=== PATIENT | male | born 1940 | race Caucasian/White ===

== ENCOUNTER 2019-07-15 03:36 | Inpatient (IN) | payer BC, MEDICAID, MEDICARE ==
--- NOTE | 2019-07-15 03:50 | ER Document Report ---
ED Fall - General Chief Complaint: Hip Pain Stated Complaint: HIP PAIN Time Seen by Provider: 07/15/19 03:44 Primary Care Provider: FELI LUNDBERG FNP-C [Primary Care Provider] - Follow up as needed Notes: Patient is a 79-year-old male that comes emergency department by EMS from [facility] for chief complaint of fall. Patient reportedly fell in his room nearby a nurse who immediately went and checked on him and found him on his side. Reportedly he was complaining of pain in the right hip area. He also had a skin tear to left elbow. Patient is completely disoriented and is unable to answer any questions appropriately on interview. He answers randomly yes and no but he does follow directions. Patient is not reported to be on a blood thinner. Patient is reported to be confused/demented at baseline. - Related data Allergies/Adverse Reactions: No Known Allergies Allergy (Verified 07/15/19 05:36) Past Medical History - General Information source: Patient - Social History Smoking Status: Never Smoker Frequency of alcohol use: None Drug Abuse: None Lives with: Family Family History: Reviewed & Not Pertinent - Past Medical History Cardiac Medical History: Reports: Hx Hypertension Neurological Medical History: Reports: Other - Dementia - Immunizations Immunizations up to date: Yes Hx Diphtheria, Pertussis, Tetanus Vaccination: Yes Review of Systems - Review of Systems Constitutional: No symptoms reported EENT: No symptoms reported Cardiovascular: No symptoms reported Respiratory: No symptoms reported Gastrointestinal: No symptoms reported Genitourinary: No symptoms reported Male Genitourinary: No symptoms reported Musculoskeletal: See HPI Skin: No symptoms reported Hematologic/Lymphatic: No symptoms reported Neurological/Psychological: No symptoms reported Physical Exam - Vital signs Vitals: Temp BP 97.7 F 153/66 H 07/15/19 03:50 07/15/19 03:50 - Notes Notes: GENERAL: Alert, interacts well. No acute distress. HEAD: Normocephalic, atraumatic. EYES: Pupils equal, round, and reactive to light. Extraocular movements intact. ENT: Oral mucosa moist, tongue midline. Oropharynx unremarkable. Airway patent. NECK: Full range of motion. Supple. Trachea midline. LUNGS: Clear to auscultation bilaterally, no wheezes, rales, or rhonchi. No respiratory distress. HEART: Regular rate and rhythm. No murmur ABDOMEN: Soft, non-tender. Non-distended. GENITOURINARY: No signs of trauma. EXTREMITIES: Right leg is externally rotated and very tender over the general thigh and hip area. Distal pulses intact. Extremities otherwise unremarkable except for a small skin abrasion over the left elbow. BACK: no cervical, thoracic, lumbar midline tenderness. Normal distal neurovascular exam. NEUROLOGICAL: Alert and cooperative but not oriented. Normal speech. Cranial nerves II through XII grossly intact. PSYCH: Patient strangely persistently grinning SKIN: Warm, dry, normal turgor. No rashes or lesions noted. Course - Re-evaluation Re-evalutation: I attempted to call patient's with the provided number but she did not answer with two attempts. I called and spoke with Yakelin, nursing staff available at the [facility] She states that patient's is usually difficult to get up with and actually lives out of state although she has the power disability attorney. She states that patient is normally very ambulatory, he spends his days room and around the halls. As result he is a candidate for surgery. 07/15/19 05:[address] Berkowitz, orthopedics on-call, he states that he will be avail able to perform the repair on the patient this weekend. Because of patient's advanced age I will discuss with hospitalist for admission. 07/15/19 06:25 I spoke with patient's , power of disability attorney, Angela. She states she is in [place] and her daughter just had a hysterectomy, she requests that we contact her and keep her updated but she is uncertain if she will be able to travel back because of this. She is in full agreement with patient having surgery on the right hip because he is normally very ambulatory. Patient is listed as a full code. 07/15/19 07:33 Spoke with Chevy Hurd, APC, patient accepted to the medical floor under medicine with orthopedic consult. - Vital Signs Vital signs: Temp Pulse Resp BP Pulse Ox 97.5 F 73 138/74 H 99 07/15/19 06:45 07/15/19 06:45 07/15/19 06:45 07/15/19 06:45 - Laboratory Result Diagrams: 07/15/19 06:15 07/15/19 06:15 Laboratory results interpreted by me: 07/15/19 07/15/19 07/15/19 06:15 06:15 06:30 RBC 3.07 L Hgb 11.0 L Hct 31.8 L MCV 103 H MCH 35.8 H RDW 15.6 H Plt Count 65 L Lymph % (Auto) 12.0 L Glucose 125 H Alkaline Phosphatase 160 H Albumin 3.3 L Urine Blood SMALL H Urine Nitrite POSITIVE H Urine Urobilinogen 2.0 H Ur Leukocyte Esterase SMALL H Discharge - Discharge Clinical Impression: Displaced subtrochanteric fracture of right femur, initial encounter for closed fracture Fall Qualifiers: Encounter type: initial encounter Qualified Code(s): W19.XXXA - Unspecified fall, initial encounter Condition: Stable Disposition: ADMITTED INPATIENT Admitting Provider: Chevy Hurd Unit Admitted: Medical Floor Referrals: FELI LUNDBERG, PEAT SHREDDER TENDER-C [Primary Care Provider] - Follow up as needed
--- NOTE | 2019-07-15 05:30 | RADIOLOGY REPORT (SQ) ---
Left elbow four view on 07/15/2019 at 4:09 AM CLINICAL INDICATION: Left elbow pain after fall COMPARISON: None FINDINGS: Chronic spur formation is noted along the lateral aspect of the radial head. There is mild diffuse osteopenia. There are no acute fractures. Visualized joints are well aligned. No joint effusion to suggest an occult fracture is noted. IMPRESSION: No acute abnormality.
--- NOTE | 2019-07-15 05:32 | RADIOLOGY REPORT (SQ) ---
EXAM DESCRIPTION: XR HIP 2 OR MORE VIEWS COMPLETED DATE/TME: 07/15/2019 03:49 CLINICAL HISTORY: 79 years, Male, fall, pain COMPARISON: None. NUMBER OF VIEWS: Three TECHNIQUE: Three views of the right hip LIMITATIONS: None. FINDINGS: There is a displaced and comminuted intertrochanteric fracture of the right femur. Bones are demineralized. No other fracture is identified. IMPRESSION: Displaced and comminuted intertrochanteric fracture of the right femur copyright 2010 [employer]- All Rights Reserved
[2019-07-15] MEDS ORDERED: MORPHINE SULFATE 10 MG/ML INJ IV ONE (06:22)
[2019-07-15 06:29] LABS: ABSOLUTE EOSINOPHILS # (AUTO) 0.2 10^3/uL (0.0-0.6); ABSOLUTE LYMPHOCYTES (AUTO) 0.7 10^3/uL (0.5-4.7); ABSOLUTE MONOCYTES (AUTO) 0.5 10^3/uL (0.1-1.4); ABSOLUTE NEUT (AUTO) 4.6 10^3/uL (1.7-8.2); BASOPHILS % (AUTO) 0.3 % (0-2); EOSINOPHILS % (AUTO) 3.1 % (0-6); HEMATOCRIT 31.8 % (37.9-51.0); MEAN CORPUSCULAR HEMOGLOBIN 35.8 pg (27.0-33.4); MEAN CORPUSCULAR HGB CONC 34.6 g/dL (32.0-36.0); MEAN CORPUSCULAR VOLUME 103 fl (80-97); MONOCYTES % (AUTO) 8.9 % (3-13); RED BLOOD COUNT 3.07 10^6/uL (4.35-5.55); RED CELL DISTRIBUTION WIDTH 15.6 % (11.5-14.0); SEGMENTED NEUTROPHILS % (AUTO) 75.7 % (42-78); TOTAL CELLS COUNTED % (AUTO) 100 %
[2019-07-15 06:35] LABS: INTERNATIONAL RATION (INR) 1.15; PROTHROMBIN TIME 14.8 SEC (11.4-15.4)
[2019-07-15 06:36] LABS: PARTIAL THROMBOPLASTIN TIME 27.5 SEC (23.5-35.8)
[2019-07-15 06:43] LABS: ALBUMIN 3.3 g/dL (3.5-5.0); ALKALINE PHOSPHATASE 160 U/L (38-126); ANION GAP 7 (5-19); ASPARTATE AMINO TRANSFERASE 41 U/L (17-59); BILIRUBIN,DIRECT 0.3 mg/dL (0.0-0.4); BLOOD UREA NITROGEN 18 mg/dL (7-20); CALCIUM 8.7 mg/dL (8.4-10.2); CARBON DIOXIDE 28 mmol/L (22-30); CHLORIDE 106 mmol/L (98-107); GLUCOSE 125 mg/dL (75-110); POTASSIUM 4.9 mmol/L (3.6-5.0); TOTAL PROTEIN 6.9 g/dL (6.3-8.2)
[2019-07-15 06:57] LABS: PLATELET COUNT 65 10^3/uL (150-450)
[2019-07-15 07:17] LABS: APPEARANCE,URINE SLIGHTLY-CLOUDY; BILIRUBIN,URINE NEGATIVE (NEGATIVE); COLOR,URINE YELLOW; GLUCOSE, URINE NEGATIVE (NEGATIVE); KETONES,URINE NEGATIVE (NEGATIVE); LEUKOCYTE ESTERASE,URINE SMALL (NEGATIVE); NITRITE,URINE POSITIVE (NEGATIVE); PROTEIN,URINE NEGATIVE (NEGATIVE)
--- NOTE | 2019-07-15 07:18 | RADIOLOGY REPORT (SQ) ---
Chest single view on 07/15/2019 at 6:20 AM CLINICAL INDICATION: Preop right femur fracture fixation COMPARISON: None FINDINGS: There is mild scoliosis of the spine. The lungs are clear. Heart is within normal limits for size. Pulmonary vascularity is within normal limits. IMPRESSION: No acute disease.
--- NOTE | 2019-07-15 07:28 | PDOC CONSULTATION ---
Consultation Consult Date: 07/15/19 Provider Consulted: DORA PENA Consult reason:: Right hip subtrochanteric fracture History of Present Illness Admission Date/PCP: HIRAL BLACK History of Present Illness: FAWAD GARCIA is a 79 year old male brought into the emergency department from a long-term care facility. He was apparently found on the floor by the nursing staff at the long-term care facility with obvious deformity of his right leg. Evaluation in the emergency department demonstrated a comminuted subtrochanteric fracture of the right hip. Past Medical History Cardiac Medical History: Reports: None Denies: Atrial Fibrillation, Congestive Heart Failure, Coronary Artery Disease, DVT, Myocardial Infarction, Hyperlipidema, Hypertension, Peripheral Vascular Disease, Pulmonary Embolism, Heart Murmur, Other Pulmonary Medical History: Reports: None Denies: Asthma, Bronchitis, Chronic Obstructive Pulmonary Disease (COPD), Intubation, Pneumonia, Respiratory Failure, Sleep Apnea, Tuberculosis, Other EENT Medical History: Reports: None Neurological Medical History: Reports: Other - Severe dementia Endocrine Medical History: Denies: None, Diabetes Mellitus Type 1, Diabetes Mellitus Type 2, Gestational Diabetes, Hyperthyroidism, Hypothyroidism, Obesity, Other Renal/ Medical History: Denies: None, Chronic Kidney Disease, End Stage Renal Disease, Nephrolithiasis, Other Malignancy Medical History: Denies: None, Bone Cancer, Brain Cancer, Breast Cancer, Cervical Cancer, Colorectal Cancer, Leukemia, Liver Cancer, Lung Cancer, Lymphoma, Ovarian Cancer, Pancreatic Cancer, Renal (Kidney) Cancer, Skin Cancer, Other GI Medical History: Denies: None, Cirrhosis, Crohn's Disease, Diverticulitis, Gastroesophageal Reflux Disease, Hepatitis, Hiatal Hernia, Peptic Ulcer Disease, Ulcerative Colitis, Other Musculoskeltal Medical History: Reports: None Skin Medical History: Reports: None Psychiatric Medical History: Reports: Dementia, Depression Traumatic Medical History: Denies: None, Gunshot Wound, Pneumothorax, Stab Wound, Traumatic Brain Injury, Other Hematology: Denies: None, Anemia, Hemophilia, Sickle Cell Disease, Bleeding Tendencies, Heparin Induced Thrombocytopenia, Neutropenia, Other Infectious Medical History: Denies: None, Clostridium Difficile, Hepatitis B, Hepatitis C, HIV, Methicillin-Resistant Staph Aureus, Vancomycin-Resistant Enterococci, Other Past Surgical History Past Surgical History: Reports: None Social History Information Source: Transfer Record Lives with: Long-Term Smoking Status: Unknown if Ever Smoked Family History Parental Family History Reviewed: No Children Family History Reviewed: No Sibling(s) Family History Reviewed.: No Medication/Allergy Allergies/Adverse Reactions: No Known Allergies Allergy (Verified 07/15/19 05:36) Physical Exam Vital Signs: Temp Pulse Resp BP Pulse Ox 97.5 F 73 138/74 H 99 07/15/19 06:45 07/15/19 06:45 07/15/19 06:45 07/15/19 06:45 Intake & Output 07/14/19 07/15/19 07/16/19 06:59 06:59 06:59 Weight 74.843 kg General appearance: PRESENT: no acute distress, well-developed, well-nourished Head exam: PRESENT: atraumatic, normocephalic Eye exam: PRESENT: conjunctiva pink, EOMI, PERRLA. ABSENT: scleral icterus Ear exam: PRESENT: normal external ear exam Mouth exam: PRESENT: moist, tongue midline Neck exam: PRESENT: full ROM Respiratory exam: PRESENT: clear to auscultation katelin. ABSENT: rales, rhonchi, wheezes Cardiovascular exam: PRESENT: RRR. ABSENT: diastolic murmur, rubs, systolic murmur Pulses: PRESENT: normal dorsalis pedis pul GI/Abdominal exam: PRESENT: normal bowel sounds, soft. ABSENT: distended, guarding, mass, organolmegaly, rebound, tenderness Rectal exam: PRESENT: deferred Extremities exam: PRESENT: other - The right leg is shortened and externally rotated. The patient is able to dorsiflex and plantarflex the foot. 2+ posterior tibial dorsalis pedis pulses. Results Laboratory Results: 07/15/19 06:15 07/15/19 06:15 07/15/19 07/15/19 07/15/19 06:15 06:15 06:30 WBC 6.0 RBC 3.07 L Hgb 11.0 L Hct 31.8 L MCV 103 H MCH 35.8 H MCHC 34.6 RDW 15.6 H Plt Count 65 L Seg Neutrophils % 75.7 Sodium 140.5 Potassium 4.9 Chloride 106 Carbon Dioxide 28 Anion Gap 7 BUN 18 Creatinine 0.75 Est GFR ( Amer) > 60 Glucose 125 H Calcium 8.7 Total Bilirubin 1.0 AST 41 Alkaline Phosphatase 160 H Total Protein 6.9 Albumin 3.3 L Urine Color YELLOW Urine Appearance SLIGHTLY-CLOUDY Urine pH 7.0 Ur Specific [place] 1.010 Urine Protein NEGATIVE Urine Glucose (UA) NEGATIVE Urine Ketones NEGATIVE Urine Blood SMALL H Urine Nitrite POSITIVE H Ur Leukocyte Esterase SMALL H Urine WBC (Auto) 9 Urine RBC (Auto) 1 Impressions: Elbow X-Ray 07/15/19 03:49 IMPRESSION: No acute abnormality. Hip/Pelvis X-Ray 07/15/19 03:49 IMPRESSION: Displaced and comminuted intertrochanteric fracture of the right femur copyright 2011 [employer]- All Rights Reserved Chest X-Ray 07/15/19 05:40 IMPRESSION: No acute disease. Assessment & Plan - Time Time Spent: 30 to 50 Minutes - Plan Summary Plan Summary: Per report of the facility and the patient's the patient does ambulates prior to his recent injury. Patient will be admitted to the medical service for evaluation. Following medical optimization I would recommend intramedullary nail fixation of the subtrochanteric fracture of the right proximal femur. Surgical consent will be obtained from his Angela who is the healthcare power of clerk carrier. Risks, benefits, and alternatives will be discussed including the risk of with anesthesia, the risk of nonunion and malunion, and the possible need for additional surgical procedures.
[2019-07-15] MEDS ORDERED: ONDANSETRON HCL INJ/PF 4 MG/2 ML SDV IV PRN (07:48)
[2019-07-15] MEDS ORDERED: DEXTROSE 50%-WATER 25 GM/50 ML DISP.SYRIN IV PRN ×2 (07:57)
[2019-07-15] MEDS ORDERED: GLUCAGON,HUMAN RECOMB 1 MG INJ IM PRN (07:57)
[2019-07-15] MEDS ORDERED: DEXTROSE 40% GEL 15 GM TUBE PO PRN ×2 (07:57)
[2019-07-15] MEDS ORDERED: HYDRALAZINE HCL INJ/PF 20 MG/1 ML SDV IV PRN (07:58)
--- NOTE | 2019-07-15 08:04 | PDOC H&P ---
History of Present Illness Admission Date/PCP: 07/15/19 07:46 FELI LUNDBERG, EXECUTIVE CANDIDATE DEVELOPER-C Patient complains of: Right hip pain History of Present Illness: FAWAD GARCIA is a 79 year old male with advanced dementia who presents the ER after a fall. Patient with Glo fell in his room at a local nursing facility and a nurse apparently found him on his side. Patient was complaining of pain in the right hip area. Also had a skin tear to his left elbow. Patient is completely disoriented and unable to answer any questions appropriately on interview. He does answer simple yes and no questions but he does not follow directions. He had no treatment prior to arrival all active is aggravating factor. Past Medical History Cardiac Medical History: Reports: None, Hypertension Denies: Atrial Fibrillation, Congestive Heart Failure, Coronary Artery Disease, DVT, Myocardial Infarction, Hyperlipidema, Peripheral Vascular Disease, Pulmonary Embolism, Heart Murmur, Other Pulmonary Medical History: Reports: None Denies: Asthma, Bronchitis, Chronic Obstructive Pulmonary Disease (COPD), Intubation, Pneumonia, Respiratory Failure, Sleep Apnea, Tuberculosis, Other EENT Medical History: Reports: None Denies: Other Neurological Medical History: Reports: Other - Dementia Endocrine Medical History: Denies: None, Diabetes Mellitus Type 1, Diabetes Mellitus Type 2, Gestational Diabetes, Hyperthyroidism, Hypothyroidism, Obesity, Other Renal/ Medical History: Denies: None, Chronic Kidney Disease, End Stage Renal Disease, Nephrolithiasis, Other Malignancy Medical History: Denies: None, Bone Cancer, Brain Cancer, Breast Cancer, Cervical Cancer, Colorectal Cancer, Leukemia, Liver Cancer, Lung Cancer, Lymphoma, Ovarian Cancer, Pancreatic Cancer, Renal (Kidney) Cancer, Skin Cancer, Other GI Medical History: Denies: None, Cirrhosis, Crohn's Disease, Diverticulitis, Gastroesophageal Reflux Disease, Hepatitis, Hiatal Hernia, Peptic Ulcer Disease, Ulcerative Colitis, Other Musculoskeltal Medical History: Reports: None Skin Medical History: Reports: None Psychiatric Medical History: Reports: Dementia, Depression Traumatic Medical History: Denies: None, Gunshot Wound, Pneumothorax, Stab Wound, Traumatic Brain Injury, Other Hematology: Denies: None, Anemia, Hemophilia, Sickle Cell Disease, Bleeding Tendencies, Heparin Induced Thrombocytopenia, Neutropenia, Other Infectious Medical History: Denies: None, Clostridium Difficile, Hepatitis B, Hepatitis C, HIV, Methicillin-Resistant Staph Aureus, Vancomycin-Resistant Enterococci, Other Past Surgical History Past Surgical History: Reports: None Social History Information Source: Patient Lives with: Family Smoking Status: Never Smoker Frequency of Alcohol Use: None Hx Recreational Drug Use: No Drugs: None Hx Prescription Drug Abuse: No - Advance Directive Resuscitation Status: Full Code Family History Family History: Unable to obtain as patient has advanced dementia no care provider at bedside Parental Family History Reviewed: No - Unable to assess secondary to mental status Children Family History Reviewed: Unknown - Unable to assess Sibling(s) Family History Reviewed.: Unknown - Unable to assess secondary to mental status Medication/Allergy Allergies/Adverse Reactions: No Known Allergies Allergy (Verified 07/15/19 05:36) Review of Systems ROS unobtainable: Due to mental status Physical Exam Vital Signs: Temp Pulse Resp BP Pulse Ox 97.5 F 73 138/74 H 99 07/15/19 06:45 07/15/19 06:45 07/15/19 06:45 07/15/19 06:45 Intake & Output 07/14/19 07/15/19 07/16/19 06:59 06:59 06:59 Weight 74.843 kg General appearance: PRESENT: no acute distress, well-developed, well-nourished Head exam: PRESENT: atraumatic, normocephalic Eye exam: PRESENT: conjunctiva pink, EOMI, PERRLA. ABSENT: scleral icterus Ear exam: PRESENT: normal external ear exam Mouth exam: PRESENT: moist, tongue midline Neck exam: ABSENT: carotid bruit, JVD, lymphadenopathy, thyromegaly Respiratory exam: PRESENT: clear to auscultation katelin. ABSENT: rales, rhonchi, wheezes Cardiovascular exam: PRESENT: RRR. ABSENT: diastolic murmur, rubs, systolic murmur Pulses: PRESENT: normal dorsalis pedis pul Vascular exam: PRESENT: normal capillary refill GI/Abdominal exam: PRESENT: normal bowel sounds, soft. ABSENT: distended, guarding, mass, organolmegaly, rebound, tenderness Rectal exam: PRESENT: deferred Extremities exam: PRESENT: full ROM. ABSENT: calf tenderness, clubbing, pedal edema Musculoskeletal exam: PRESENT: other - Right lower extremity internal rotation and shortening secondary to fracture Neurological exam: PRESENT: alert, awake, oriented to person, oriented to place, oriented to time, oriented to situation, CN II-XII grossly intact. ABSENT: motor sensory deficit Psychiatric exam: PRESENT: appropriate affect, normal mood. ABSENT: homicidal ideation, suicidal ideation Skin exam: PRESENT: dry, intact, warm, other - Right elbow skin tear. ABSENT: cyanosis, rash Results Laboratory Results: 07/15/19 06:15 07/15/19 06:15 07/15/19 07/15/19 07/15/19 06:15 06:15 06:30 WBC 6.0 RBC 3.07 L Hgb 11.0 L Hct 31.8 L MCV 103 H MCH 35.8 H MCHC 34.6 RDW 15.6 H Plt Count 65 L Seg Neutrophils % 75.7 Sodium 140.5 Potassium 4.9 Chloride 106 Carbon Dioxide 28 Anion Gap 7 BUN 18 Creatinine 0.75 Est GFR ( Amer) > 60 Glucose 125 H Calcium 8.7 Total Bilirubin 1.0 AST 41 Alkaline Phosphatase 160 H Total Protein 6.9 Albumin 3.3 L Urine Color YELLOW Urine Appearance SLIGHTLY-CLOUDY Urine pH 7.0 Ur Specific [place] 1.010 Urine Protein NEGATIVE Urine Glucose (UA) NEGATIVE Urine Ketones NEGATIVE Urine Blood SMALL H Urine Nitrite POSITIVE H Ur Leukocyte Esterase SMALL H Urine WBC (Auto) 9 Urine RBC (Auto) 1 Impressions: Elbow X-Ray 07/15/19 03:49 IMPRESSION: No acute abnormality. Hip/Pelvis X-Ray 07/15/19 03:49 IMPRESSION: Displaced and comminuted intertrochanteric fracture of the right femur copyright 2010 [employer]- All Rights Reserved Chest X-Ray 07/15/19 05:40 IMPRESSION: No acute disease. Assessment and Plan - Diagnosis (1) Displaced subtrochanteric fracture of right femur, initial encounter for closed fracture Is this a current diagnosis for this admission?: Yes Plan: 07/15/2019-admit to medical surgical floor. Treat UTI with Rocephin. Clear patient for surgical intervention for this displaced subtrochanteric fracture of the right femur. Await surgical fixation may change plan of care as appropriate (2) UTI (urinary tract infection) Is this a current diagnosis for this admission?: Yes Plan: 07/15/2019-small leukocyte esterase in urine. Rocephin 1 g IV daily. Await cultures (3) Hypertension Is this a current diagnosis for this admission?: Yes Plan: 07/15/2019-once medication reconciliation is complete I will continue all home medications (4) Hyperglycemia Is this a current diagnosis for this admission?: Yes Plan: 07/15/2019-patient n.p.o. at this time for surgical fixation. Scale insulin every 6 hours while n.p.o. Switch over to AC and at bedtime dosing. Obtain A1c in the a.m. - Inpatient Certification Based on my medical assessment, after consideration of the patient's comorb idities, presenting symptoms, or acuity I expect that the services needed warrant INPATIENT care.: Yes I certify that my determination is in accordance with my understanding of Medicare's requirements for reasonable and necessary INPATIENT services [42 CFR 412.3e].: Yes Medical Necessity: Need for Pain Control, Need for IV Antibiotics, Need for Surgery
[2019-07-15] MEDS: INSULIN LISPRO 100 UNIT/ML 3 ML VIAL SUBCUT SCH ×4 (09:31→22:13)
[2019-07-15] MEDS: CEFTRIAXONE 1 GM/D5W RTU 1 GM/50 ML RTUPB IV SCH (10:58)
[2019-07-15] MEDS: MORPHINE SULFATE 10 MG/ML INJ IV PRN ×2 (11:31→16:28)
[2019-07-15] MEDS: NORMAL SALINE 1000 ML 1,000 ML IV PRN (15:04)
[2019-07-15] MEDS ORDERED: PERMETHRIN 5% CREAM 60 GM TP ONE (17:00)
[2019-07-16 06:35] LABS: HEMATOCRIT 29.7 % (37.9-51.0); HEMOGLOBIN 10.5 g/dL (13.5-17.0); MEAN CORPUSCULAR HEMOGLOBIN 37.1 pg (27.0-33.4); MEAN CORPUSCULAR HGB CONC 35.3 g/dL (32.0-36.0); MEAN CORPUSCULAR VOLUME 105 fl (80-97); RED BLOOD COUNT 2.82 10^6/uL (4.35-5.55); RED CELL DISTRIBUTION WIDTH 15.8 % (11.5-14.0); WHITE BLOOD COUNT 7.5 10^3/uL (4.0-10.5)
[2019-07-16 06:47] LABS: ANION GAP 7 (5-19); BLOOD UREA NITROGEN 26 mg/dL (7-20); CALCIUM 8.2 mg/dL (8.4-10.2); CARBON DIOXIDE 27 mmol/L (22-30); CHLORIDE 106 mmol/L (98-107); GLUCOSE 146 mg/dL (75-110); PHOSPHORUS 3.5 mg/dL (2.5-4.5); POTASSIUM 4.8 mmol/L (3.6-5.0)
[2019-07-16 07:12] LABS: PLATELET COUNT 90 10^3/uL (150-450)
[2019-07-16] MEDS ORDERED: LORAZEPAM 0.5 MG TABLET PO PRN (08:38)
--- NOTE | 2019-07-16 08:38 | PDOC PROGRESS REPORT ---
Subjective Progress Note for:: 07/16/19 Subjective:: 07/16/2019-no complaints this a.m. patient very diminished Reason For Visit: RIGHT FEMUR FRACTURE Physical Exam Vital Signs: Temp Pulse Resp BP Pulse Ox 98.1 F 90 16 131/66 H 99 07/16/19 00:48 07/16/19 00:48 07/16/19 00:48 07/16/19 00:48 07/16/19 00:48 Intake & Output 07/15/19 07/16/19 07/17/19 06:59 06:59 06:59 Intake Total 50 Output Total 600 Balance -550 Weight 74.843 kg General appearance: PRESENT: no acute distress, well-developed, well-nourished Neck exam: ABSENT: carotid bruit, JVD, lymphadenopathy, thyromegaly Cardiovascular exam: PRESENT: RRR. ABSENT: diastolic murmur, rubs, systolic murmur Pulses: PRESENT: +1 pedal pulses bilateral Vascular exam: PRESENT: normal capillary refill Extremities exam: PRESENT: full ROM. ABSENT: calf tenderness, clubbing, pedal edema Neurological exam: PRESENT: awake Psychiatric exam: PRESENT: appropriate affect, normal mood. ABSENT: homicidal ideation, suicidal ideation Skin exam: PRESENT: dry, intact, warm. ABSENT: cyanosis, rash Results Laboratory Results: 07/16/19 05:33 07/16/19 05:33 07/16/19 07/16/19 05:33 05:33 WBC 7.5 RBC 2.82 L Hgb 10.5 L Hct 29.7 L MCV 105 H MCH 37.1 H MCHC 35.3 RDW 15.8 H Plt Count 90 L Sodium 140.4 Potassium 4.8 Chloride 106 Carbon Dioxide 27 Anion Gap 7 BUN 26 H Creatinine 0.76 Est GFR ( Amer) > 60 Glucose 146 H Calcium 8.2 L Phosphorus 3.5 Magnesium 2.2 Impressions: Elbow X-Ray 07/15/19 03:49 IMPRESSION: No acute abnormality. Hip/Pelvis X-Ray 07/15/19 03:49 IMPRESSION: Displaced and comminuted intertrochanteric fracture of the right femur copyright 2010 [employer]- All Rights Reserved Chest X-Ray 07/15/19 05:40 IMPRESSION: No acute disease. Assessment and Plan - Diagnosis (1) Displaced subtrochanteric fracture of right femur, initial encounter for closed fracture Is this a current diagnosis for this admission?: Yes Plan: 07/15/2019-admit to medical surgical floor. Treat UTI with Rocephin. Clear patient for surgical intervention for this displaced subtrochanteric fracture of the right femur. Await surgical fixation may change plan of care as appropriate 07/16/2019-medically cleared at this time will go for surgical fixation with Dr. Berkowitz in the a.m. (2) UTI (urinary tract infection) Is this a current diagnosis for this admission?: Yes Plan: 07/15/2019-small leukocyte esterase in urine. Rocephin 1 g IV daily. Await cultures 07/16/2019-continue Rocephin await cultures (3) Hypertension Is this a current diagnosis for this admission?: Yes Plan: 07/15/2019-once medication reconciliation is complete I will continue all home medications 07/16/2019-stable at this time continue to follow (4) Hyperglycemia Is this a current diagnosis for this admission?: Yes Plan: 07/15/2019-patient n.p.o. at this time for surgical fixation. Scale insulin every 6 hours while n.p.o. Switch over to AC and at bedtime dosing. Obtain A1c in the a.m. 07/16/2019-stable at this time continue sliding scale insulin - Time Time Spent with patient: 15-24 minutes - Inpatient Certification Based on my medical assessment, after consideration of the patient's comorbidities, presenting symptoms, or acuity I expect that the services needed warrant INPATIENT care.: Yes I certify that my determination is in accordance with my understanding of Medicare's requirements for reasonable and necessary INPATIENT services [42 CFR 412.3e].: Yes Medical Necessity: Need for Surgery
[2019-07-16] MEDS ORDERED: (PENDING PHARMACY ID) (Lisinopril [Lisinopril] 20 MG) PO SCH (10:00)
[2019-07-16] MEDS ORDERED: PERMETHRIN 5% CREAM 60 GM TP SCH (10:00)
[2019-07-16] MEDS: INSULIN LISPRO 100 UNIT/ML 3 ML VIAL SUBCUT SCH ×4 (10:07→22:00)
[2019-07-16] MEDS: LISINOPRIL 10 MG TABLET PO SCH (10:14)
[2019-07-16] MEDS: QUETIAPINE FUMARATE 25 MG TABLET PO SCH ×2 (10:14→22:03)
[2019-07-16] MEDS: CEFTRIAXONE 1 GM/D5W RTU 1 GM/50 ML RTUPB IV SCH (10:14)
[2019-07-16] MEDS: METOPROLOL SUCCINATE 25 MG TAB.SR.24H PO SCH (10:14)
[2019-07-16] MEDS ORDERED: NORMAL SALINE 500 ML IV ONE (16:30)
[2019-07-16] MEDS: NORMAL SALINE 1000 ML 1,000 ML IV PRN (20:46)
--- NOTE | 2019-07-16 21:26 | EKG REPORT ---
SEVERITY:- ABNORMAL ECG - ATRIAL FIBRILLATION : Confirmed by: Reshma Bowman MD 16-Jul-2019 21:26:05
--- NOTE | 2019-07-16 21:26 | EKG REPORT ---
SEVERITY:- BORDERLINE ECG - ATRIAL FIBRILLATION : Confirmed by: Reshma Bowman MD 16-Jul-2019 21:25:39
[2019-07-16] MEDS ORDERED: DIVALPROEX SODIUM 250 MG PO SCH (22:00)
[2019-07-16] MEDS: TRAZODONE HCL 50 MG TABLET PO SCH (22:03)
[2019-07-16] MEDS: DIVALPROEX SODIUM 250 MG TAB.SR.24H PO SCH (22:04)
[2019-07-17 05:34] LABS: ABSOLUTE EOSINOPHILS # (AUTO) 0.1 10^3/uL (0.0-0.6); ABSOLUTE LYMPHOCYTES (AUTO) 1.1 10^3/uL (0.5-4.7); ABSOLUTE NEUT (AUTO) 3.8 10^3/uL (1.7-8.2); BASOPHILS % (AUTO) 0.2 % (0-2); EOSINOPHILS % (AUTO) 0.9 % (0-6); HEMATOCRIT 21.5 % (37.9-51.0); LYMPHOCYTES % (AUTO) 18.1 % (13-45); MEAN CORPUSCULAR HEMOGLOBIN 36.1 pg (27.0-33.4); MEAN CORPUSCULAR VOLUME 103 fl (80-97); MONOCYTES % (AUTO) 16.7 % (3-13); RED BLOOD COUNT 2.09 10^6/uL (4.35-5.55); SEGMENTED NEUTROPHILS % (AUTO) 64.1 % (42-78); TOTAL CELLS COUNTED % (AUTO) 100 %; WHITE BLOOD COUNT 5.9 10^3/uL (4.0-10.5)
[2019-07-17 05:54] LABS: ANION GAP 5 (5-19); BLOOD UREA NITROGEN 43 mg/dL (7-20); CALCIUM 7.8 mg/dL (8.4-10.2); CARBON DIOXIDE 27 mmol/L (22-30); CHLORIDE 107 mmol/L (98-107); GLUCOSE 136 mg/dL (75-110); POTASSIUM 4.5 mmol/L (3.6-5.0)
[2019-07-17 06:45] LABS: HEMOGLOBIN 7.5 g/dL (13.5-17.0); PLATELET COUNT 76 10^3/uL (150-450)
[2019-07-17] MEDS ORDERED: NORMAL SALINE 250 ML IV PRN ×2 (08:23)
[2019-07-17] MEDS: INSULIN LISPRO 100 UNIT/ML 3 ML VIAL SUBCUT SCH ×4 (08:53→23:56)
[2019-07-17 09:22] LABS: HEMATOCRIT 22.8 % (37.9-51.0); MEAN CORPUSCULAR HEMOGLOBIN 36.4 pg (27.0-33.4); MEAN CORPUSCULAR HGB CONC 34.8 g/dL (32.0-36.0); MEAN CORPUSCULAR VOLUME 105 fl (80-97); RED BLOOD COUNT 2.18 10^6/uL (4.35-5.55); RED CELL DISTRIBUTION WIDTH 16.2 % (11.5-14.0); WHITE BLOOD COUNT 5.9 10^3/uL (4.0-10.5)
[2019-07-17 09:41] LABS: HEMOGLOBIN 7.9 g/dL (13.5-17.0)
[2019-07-17 09:42] LABS: PLATELET COUNT 76 10^3/uL (150-450)
[2019-07-17] MEDS: NORMAL SALINE 1000 ML 1,000 ML IV PRN (10:44)
[2019-07-17] MEDS: CEFTRIAXONE 1 GM/D5W RTU 1 GM/50 ML RTUPB IV SCH (10:44)
[2019-07-17] MEDS: METOPROLOL SUCCINATE 25 MG TAB.SR.24H PO SCH (10:45)
[2019-07-17] MEDS: QUETIAPINE FUMARATE 25 MG TABLET PO SCH ×2 (10:52→21:37)
[2019-07-17] MEDS: LISINOPRIL 10 MG TABLET PO SCH (10:52)
--- NOTE | 2019-07-17 15:01 | XCELERA REPORT ---
[address] [address] Transthoracic Echocardiogram Report Name: FAWAD GARCIA Age: 79 yrs Gender: Male : 1940 Patient Status: Inpatient Patient Location: [address] [place], [place] [id number] Study Date: 07/17/2019 11:46 AM Weight: 162 lb Procedure: A two-dimensional transthoracic echocardiogram with color flow and Doppler was performed. The study was technically limited with all images being suboptimal in quality. Reason For Study: A-FIB / MURMUR / Pre-op History: A-FIB / MURMUR / Pre-op. Ordering Physician: RESHMA KESSLER Performed By: Sharon Obrien Interpretation Summary The left ventricle is normal in size. There is normal left ventricular wall thickness. LV EF is > than 60% Left ventricular systolic function is normal. The left ventricular wall motion is normal. There is no thrombus. cannot assess ASD,VSD,or PFO. The right ventricle is not well visualized secondary to technical limitations The right atrium is normal. The left atrium is mildly dilated. There is no evidence of mitral valve prolapse. There is no vegetation seen on the mitral valve. There is no mitral valve stenosis. There is a trace amount of mitral regurgitation There is no aortic valvular vegetation. There is no aortic valve stenosis There is no LVOT obstruction. No aortic regurgitation is present. There is no tricuspid stenosis. There is a trace amount of tricuspid regurgitation There is mild pulmonary hypertension by echo RVSP is 35 mm of Hg , with RA mean of 10. There is no pulmonic valvular stenosis. There is no pulmonic valvular regurgitation. The aortic root is normal size. The inferior vena cava was not visualized There is no pericardial effusion. MMode/2D Measurements & Calculations RVDd: 3.2 cm LVIDd: 4.7 cm FS: 31.2 % Ao root diam: 3.2 cm IVSd: 0.93 cm LVIDs: 3.2 cm EDV(Teich): 100.7 ml LVPWd: 0.87 cm ESV(Teich): 41.4 ml Ao root area: 8.0 cm2 EF(Teich): 58.9 % Doppler Measurements & Calculations MV E max tc: MV dec slope: Ao V2 max: LV V1 max P.4 cm/sec 131.3 cm/sec 4.4 mmHg MV A max tc: 335.2 cm/sec2 Ao max PG: LV V1 max: 92.5 cm/sec MV dec time: 0.25 sec6.9 mmHg 105.2 cm/sec MV E/A: 0.91 PA V2 max: TR max tc: 106.7 cm/sec 242.1 cm/sec PA max P.6 mmHg TR max P.5 mmHg Left Ventricle The left ventricle is normal in size. There is normal left ventricular wall thickness. LV EF is > than 60%. Left ventricular systolic function is normal. LV diastolic function could not be adequately assessed due to atrial fibrilation. The left ventricular wall motion is normal. There is no thrombus. cannot assess ASD,VSD,or PFO. Right Ventricle The right ventricle is not well visualized secondary to technical limitations. Atria The right atrium is normal. The left atrium is mildly dilated. Mitral Valve There is no evidence of mitral valve prolapse. There is no vegetation seen on the mitral valve. There is no mitral valve stenosis. There is a trace amount of mitral regurgitation. Aortic Valve There is no aortic valvular vegetation. There is no aortic valve stenosis. There is no LVOT obstruction. No aortic regurgitation is present. Tricuspid Valve There is no tricuspid stenosis. There is a trace amount of tricuspid regurgitation. There is mild pulmonary hypertension by echo. RVSP is 35 mm of Hg , with RA mean of 10. Pulmonic Valve There is no pulmonic valvular stenosis. There is no pulmonic valvular regurgitation. Great Vessels The aortic root is normal size. The inferior vena cava was not visualized. Effusions There is no pericardial effusion. : RESHMA KESSLER Lakshmi
--- NOTE | 2019-07-17 15:06 | PDOC CONSULTATION ---
Consultation-Blank Consultation: CARDIOLOGY CONSULTATION by Dr. Reshma Bowman on 07/17/2019. Patient seen at 3:30 PM on 07/17/2019. 50 minutes spent on this patient more than 50% of time spent in direct patient care. REASON FOR CONSULTATION: Preoperative cardiac risk assessment for this patient's hip surgery. CONSULT REQUESTING PHYSICIAN: Ms. Tana Rodas, nurse practitioner, [facility] and Dr. Asif, anesthesiologist. Note patient has advanced dementia and is nonverbal. Hence most of the information obtained to the patient's records. HISTORY PRESENT ILLNESS: 79-year-old male with advanced dementia, chronic atrial fibrillation, and hypertension with accidental fall and fracture of the right hip and is for surgical repair of the same. The patient is nonverbal and hence no history can be obtained, but the patient appears to be comfortable in no acute distress. Past Medical History Cardiac Medical History: Reports: None, Hypertension Denies: Atrial Fibrillation, Congestive Heart Failure, Coronary Artery Disease, DVT, Myocardial Infarction, Hyperlipidema, Peripheral Vascular Disease, Pulmonary Embolism, Heart Murmur, Other Pulmonary Medical History: Reports: None Denies: Asthma, Bronchitis, Chronic Obstructive Pulmonary Disease (COPD), Intubation, Pneumonia, Respiratory Failure, Sleep Apnea, Tuberculosis, Other EENT Medical History: Reports: None Denies: Other Neurological Medical History: Reports: Other - Dementia Endocrine Medical History: Denies: None, Diabetes Mellitus Type 1, Diabetes Mellitus Type 2, Gestational Diabetes, Hyperthyroidism, Hypothyroidism, Obesity, Other Renal/ Medical History: Denies: None, Chronic Kidney Disease, End Stage Renal Disease, Nephrolithiasis, Other Malignancy Medical History: Denies: None, Bone Cancer, Brain Cancer, Breast Cancer, Cervical Cancer, Colorectal Cancer, Leukemia, Liver Cancer, Lung Cancer, Lymphoma, Ovarian Cancer, Pancreatic Cancer, Renal (Kidney) Cancer, Skin Cancer, Other GI Medical History: Denies: None, Cirrhosis, Crohn's Disease, Diverticulitis, Gastroesophageal Reflux Disease, Hepatitis, Hiatal Hernia, Peptic Ulcer Disease, Ulcerative Colitis, Other Musculoskeltal Medical History: Reports: None Skin Medical History: Reports: None Psychiatric Medical History: Reports: Dementia, Depression Traumatic Medical History: Denies: None, Gunshot Wound, Pneumothorax, Stab Wound, Traumatic Brain Injury, Other Hematology: Denies: None, Anemia, Hemophilia, Sickle Cell Disease, Bleeding Tendencies, Heparin Induced Thrombocytopenia, Neutropenia, Other Infectious Medical History: Denies: None, Clostridium Difficile, Hepatitis B, Hepatitis C, HIV, Methicillin-Resistant Staph Aureus, Vancomycin-Resistant Enterococci, Other Past Surgical History Past Surgical History: Reports: None Social History Information Source: Patient Lives with: Family Smoking Status: Never Smoker Frequency of Alcohol Use: None Hx Recreational Drug Use: No Drugs: None Hx Prescription Drug Abuse: No - Advance Directive Resuscitation Status: Full Code. As per medical records of this admission chart the patient's is his surrogate healthcare decision maker. Acetaminophen [Tylenol] 650 mg PO Q6HP PRN 07/15/19 Ammonium Lactate [Lac-Hydrin 12% Lotion 225Gm/Bottle] 1 applic TP Q12 07/15/19 Divalproex Sodium [Depakote] 250 mg PO QHS 07/15/19 Guaifenesin [Mucus-Chest Congestion] 10 ml PO Q4HP PRN 07/15/19 Ivermectin [Stromectol 3 Mg Tablet] 15 mg PO FR@0800 07/15/19 Lisinopril 20 mg PO DAILY 07/15/19 Lorazepam [Ativan 0.5 mg Tablet] 0.5 mg PO DAILYP PRN 07/15/19 Magnesium Hydroxide [Milk of Magnesia 30 ml Udcup] 30 ml PO DAILYP PRN 07/15/19 Metoprolol Succinate [Toprol Xl 25 mg Tab.sr] 25 mg PO DAILY 07/15/19 Multivitamin [Daily Multiple Vitamin] 1 each PO DAILY 07/15/19 Quetiapine Fumarate [Seroquel 25 mg Tablet] 25 mg PO Q12 07/15/19 Trazodone HCl [Desyrel 50 mg Tablet] 25 mg PO QHS 07/15/19 Zinc Oxide [Desitin] 1 applic TP QID 07/15/19 Family History Family History: Unable to obtain as patient has advanced dementia no care provider at bedside Parental Family History Reviewed: No - Unable to assess secondary to mental status Children Family History Reviewed: Unknown - Unable to assess Sibling(s) Family History Reviewed.: Unknown - Unable to assess secondary to mental status Medication/Allergy Allergies/Adverse Reactions: No Known Allergies Allergy (Verified 07/15/19 05:36) Current Medications Generic Name Dose Route Start Last Admin Trade Name Freq PRN Reason Stop Dose Admin Dextrose 12.5 gm 07/15/19 07:57 Dextrose Inj 50% Syringe (25 Gm/50 Ml) IV 08/14/19 07:56 PRN PRN FOR BG 50-69 IN ALERT PATIENT Protocol Dextrose 25 gm 07/15/19 07:57 Dextrose Inj 50% Syringe (25 Gm/50 Ml) IV 08/14/19 07:56 PRN PRN PER PROTOCOL Protocol Divalproex Sodium 250 mg 07/16/19 22:00 07/16/19 22:04 Depakote Er 250 Mg Tablet PO 08/15/19 21:59 250 mg QHS ANAMARIA Administration Glucagon 1 mg 07/15/19 07:57 Glucagen Inj 1 Mg Vial IM 08/14/19 07:56 PRN PRN Evaluate for BG < 70 Protocol Glucose 15 gm 07/15/19 07:57 Glutose 40% Gel 15 Gm Tube PO 08/14/19 07:56 PRN PRN FOR BG 50-69 IN ALERT PATIENT Protocol Glucose 30 gm 07/15/19 07:57 Glutose 40% Gel 15 Gm Tube PO 08/14/19 07:56 PRN PRN FOR BG < 50 IN ALERT PATIENT Protocol Hydralazine HCl 10 mg 07/15/19 07:58 Apresoline Inj/Pf 20 Mg/1 Ml Sdv IV 08/14/19 07:57 Q6HP PRN Give For Sbp > [160] Sodium Chloride 1,000 mls @ 75 mls/hr 07/15/19 07:48 07/17/19 10:44 Nacl 0.9% 1000 Ml Iv Soln IV 08/14/19 07:47 75 mls/hr CONTINUOUS PRN Administration THIS MED IS NOT "PRN" Ceftriaxone Sodium/Dextrose 1 gm in 50 mls @ 100 mls/hr 07/15/19 10:00 07/17/19 11:15 Rocephin Rtu 1 Gm/D5w 50 Ml Premix IV 07/22/19 09:59 Infused DAILY ANAMARIA Infusion Sodium Chloride 250 mls @ 30 mls/hr 07/17/19 08:23 Nacl 0.9% 250 Ml Iv Soln IV 07/18/19 08:22 .DURING TRANSFUSION PRN THIS MED IS NOT "PRN" Sodium Chloride 250 mls @ 0 mls/hr 07/17/19 08:23 Nacl 0.9% 250 Ml Iv Soln IV 07/18/19 08:22 CONTINUOUS PRN AFTER EACH UNIT As Directed Insulin Human Lispro 0 - 12 unit 07/15/19 08:00 07/17/19 16:28 Humalog Insulin 100 Unit/1 Ml 3 Ml Vial SUBCUT 08/14/19 07:59 Not Given ACHS [facility] Protocol Lisinopril 20 mg 07/16/19 10:00 07/17/19 10:52 Prinivil 10 Mg Tablet PO 08/15/19 09:59 Not Given DAILY ANAMARIA Lorazepam 0.5 mg 07/16/19 08:38 Ativan 0.5 Mg Tablet PO 07/23/19 08:37 DAILYP PRN AGITATION Metoprolol Succinate 25 mg 07/16/19 10:00 07/17/19 10:45 Toprol Xl 25 Mg Tab.Sr PO 08/15/19 09:59 25 mg DAILY ANAMARIA Administration Morphine Sulfate 2 mg 07/15/19 07:56 07/15/19 16:28 Morphine 10 Mg/Ml Inj IV 07/22/19 07:55 2 mg Q4HP PRN Administration FOR PAIN Multivitamins 1 tab 07/18/19 10:00 Tab-A-Becky (Multiple Vitamin) Tablet PO 08/17/19 09:59 DAILY [facility] Ondansetron HCl 4 mg 07/15/19 07:48 Zofran Inj/Pf 4 Mg/2 Ml Sdv IV 08/14/19 07:47 Q8HP PRN FOR NAUSEA/VOMITING Pantoprazole Sodium 40 mg 07/18/19 10:00 Protonix Iv Inj 40 Mg Vial IV 07/24/19 09:59 DAILY [facility] Quetiapine Fumarate 25 mg 07/16/19 10:00 07/17/19 10:52 Seroquel 25 Mg Tablet PO 08/15/19 09:59 Not Given Q12 ANAMARIA Sodium Chloride 2.5 ml 07/15/19 14:00 07/17/19 13:15 Saline Flush 2.5 Ml Monoject Prefil Syrin IV 08/14/19 13:59 Not Given Q8 ANAMARIA Trazodone HCl 25 mg 07/16/19 22:00 07/16/19 22:03 Desyrel 50 Mg Tablet PO 08/15/19 21:59 25 mg QHS ANAMARIA Administration Discontinued Medications Generic Name Dose Route Start Last Admin Trade Name Freq PRN Reason Stop Dose Admin Sodium Chloride 500 mls @ 0 mls/hr 07/16/19 16:30 07/16/19 17:40 Nacl 0.9% 500 Ml Iv Soln IV 07/16/19 16:31 Infused BOLUS ONE Infusion Wide Open Morphine Sulfate 2 mg 07/15/19 06:22 07/15/19 06:29 Morphine 10 Mg/Ml Inj IV 07/15/19 06:23 2 mg NOW ONE Administration Permethrin 1 applic 07/16/19 10:00 Acticin 5% Cream 60 Gm TP 07/17/19 09:59 DAILY ANAMARIA Permethrin 1 applic 07/15/19 17:00 07/15/19 17:21 Acticin 5% Cream 60 Gm TP 07/15/19 17:01 1 applic NOW ONE Administration Review of Systems ROS unobtainable: Due to mental status. PHYSICAL EXAMINATION: The patient is well-built is pleasantly confused, but does not appear to be in any acute distress. Selected Entries 07/17/19 15:40 Temperature 99.9 F Temperature Axillary Source Pulse Rate 76 Respiratory 18 Rate Blood Pressure 129/60 H [Left Upper Arm ] Blood Pressure 83 Mean [Left Upper Arm] Blood Pressure Supine Position [Left Upper Arm] O2 Sat by Pulse 96 Oximetry Oxygen Delivery Nasal Cannula Method ( includes room air) Oxygen Flow 1 Rate HEAD: Is atraumatic normocephalic. EYES: Pupils are equal round regular reactive to light and accommodation. There is no clinical pallor. There is no scleral icterus. External ocular movements are normal. EARS: Tympanic membranes are intact. External auditory canals are clear. NOSE: Nasal mucous membranes are not inflamed. There is no deviated nasal septum. MOUTH: Mucous membranes of mouth are moist. Tongue is moist. There is no ulcers. There is no bleeding from the gums. THROAT: There is no redness of the oropharynx. There is no exudates in the throat. SKIN: There is no petechia or ecchymosis. There is no skin rashes or skin lesions. NECK: Is supple. There is no JVD. Carotids are equal there is no bruits. There is no lymphadenopathy. There is no goiter. There is no accessory muscles of respiration in use. Trachea central. LUNGS: There is diminished air entry and prolonged expiration. On percussion there is hyperresonance. There is scattered rhonchi present. There is no rales or wheezing. There is no chest wall tenderness on palpation. HEART: S1-S2 is heard. S1 is of variable intensity. There is no S3 gallop. There is no S4 gallop. There is systolic murmur left sternal border and the apex, without radiation. There is no murmur of aortic stenosis . There is no aortic regurgitation murmur.. There is no rub. ABDOMEN: Is Nontender. There is no hepatosplenomegaly. Bowel sounds are well heard. EXTREMITIES: Femorals are deep. Femorals are slightly diminished. There is no femoral bruits. There is no pedal edema. There is no DVT or cellulitis. Leg pulses are diminished. There is no cyanosis or clubbing. Capillary refill is normal. There is no calf tenderness. EDGER AUTOMATIC: The patient is conscious awake alert oriented x3 with no focal deficits. PSYCHIATRIC: The patient judgment and insight are intact her affect is normal. Elbow X-Ray 07/15/19 03:49 IMPRESSION: No acute abnormality. Hip/Pelvis X-Ray 07/15/19 03:49 IMPRESSION: Displaced and comminuted intertrochanteric fracture of the right femur copyright 2011 [employer]- All Rights Reserved Chest X-Ray 07/15/19 05:40 IMPRESSION: No acute disease. Labs- Entire Visit 07/15/19 07/15/19 07/15/19 06:15 06:15 06:15 WBC 6.0 RBC 3.07 L Hgb 11.0 L Hct 31.8 L MCV 103 H MCH 35.8 H MCHC 34.6 RDW 15.6 H Plt Count 65 L Lymph % (Auto) 12.0 L Gar[place] % (Auto) 8.9 Eos % (Auto) 3.1 Baso % (Auto) 0.3 Absolute Neuts (auto) 4.6 Absolute Lymphs (auto) 0.7 Absolute Monos (auto) 0.5 Absolute Eos (auto) 0.2 Absolute Basos (auto) 0.0 Seg Neutrophils % 75.7 PT 14.8 INR 1.15 APTT 27.5 Sodium 140.5 Potassium 4.9 Chloride 106 Carbon Dioxide 28 Anion Gap 7 BUN 18 Creatinine 0.75 Est GFR ( Amer) > 60 Est GFR (MDRD) Non-Af > 60 Glucose 125 H POC Glucose Hemoglobin A1c % Calcium 8.7 Phosphorus Magnesium Total Bilirubin 1.0 Direct Bilirubin 0.3 Neonat Total Bilirubin Not Reportable Neonat Direct Bilirubin Not Reportable Neonat Indirect Bili Not Reportable AST 41 ALT 40 Alkaline Phosphatase 160 H Total Protein 6.9 Albumin 3.3 L Urine Color Urine Appearance Urine pH Ur Specific [place] Urine Protein Urine Glucose (UA) Urine Ketones Urine Blood Urine Nitrite Urine Bilirubin Urine Urobilinogen Ur Leukocyte Esterase Urine WBC (Auto) Urine RBC (Auto) Urine Bacteria (Auto) Urine Mucus (Auto) Urine Ascorbic Acid Blood Type Blood Type Confirm Antibody Screen Crossmatch 07/15/19 07/15/19 07/15/19 06:30 09:31 17:27 WBC RBC Hgb Hct MCV MCH MCHC RDW Plt Count Lymph % (Auto) Gar[place] % (Auto) Eos % (Auto) Baso % (Auto) Absolute Neuts (auto) Absolute Lymphs (auto) Absolute Monos (auto) Absolute Eos (auto) Absolute Basos (auto) Seg Neutrophils % PT INR APTT Sodium Potassium Chloride Carbon Dioxide Anion Gap BUN Creatinine Est GFR ( Amer) Est GFR (MDRD) Non-Af Glucose POC Glucose 142 H 150 H Hemoglobin A1c % Calcium Phosphorus Magnesium Total Bilirubin Direct Bilirubin Neonat Total Bilirubin Neonat Direct Bilirubin Neonat Indirect Bili AST ALT Alkaline Phosphatase Total Protein Albumin Urine Color YELLOW Urine Appearance SLIGHTLY-CLOUDY Urine pH 7.0 Ur Specific [place] 1.010 Urine Protein NEGATIVE Urine Glucose (UA) NEGATIVE Urine Ketones NEGATIVE Urine Blood SMALL H Urine Nitrite POSITIVE H Urine Bilirubin NEGATIVE Urine Urobilinogen 2.0 H Ur Leukocyte Esterase SMALL H Urine WBC (Auto) 9 Urine RBC (Auto) 1 Urine Bacteria (Auto) TRACE Urine Mucus (Auto) RARE Urine Ascorbic Acid NEGATIVE Blood Type Blood Type Confirm Antibody Screen Crossmatch 07/15/19 07/16/19 07/16/19 20:46 05:33 05:33 WBC 7.5 RBC 2.82 L Hgb 10.5 L Hct 29.7 L MCV 105 H MCH 37.1 H MCHC 35.3 RDW 15.8 H Plt Count 90 L Lymph % (Auto) [place] % (Auto) Eos % (Auto) Baso % (Auto) Absolute Neuts (auto) Absolute Lymphs (auto) Absolute Monos (auto) Absolute Eos (auto) Absolute Basos (auto) Seg Neutrophils % PT INR APTT Sodium 140.4 Potassium 4.8 Chloride 106 Carbon Dioxide 27 Anion Gap 7 BUN 26 H Creatinine 0.76 Est GFR ( Amer) > 60 Est GFR (MDRD) Non-Af > 60 Glucose 146 H POC Glucose 163 H Hemoglobin A1c % Calcium 8.2 L Phosphorus 3.5 Magnesium 2.2 Total Bilirubin Direct Bilirubin Neonat Total Bilirubin Neonat Direct Bilirubin Neonat Indirect Bili AST ALT Alkaline Phosphatase Total Protein Albumin Urine Color Urine Appearance Urine pH Ur Specific [place] Urine Protein Urine Glucose (UA) Urine Ketones Urine Blood Urine Nitrite Urine Bilirubin Urine Urobilinogen Ur Leukocyte Esterase Urine WBC (Auto) Urine RBC (Auto) Urine Bacteria (Auto) Urine Mucus (Auto) Urine Ascorbic Acid Blood Type Blood Type Confirm Antibody Screen Crossmatch 07/16/19 07/16/19 07/16/19 06:02 12:32 17:23 WBC RBC Hgb Hct MCV MCH MCHC RDW Plt Count Lymph % (Auto) [place] % (Auto) Eos % (Auto) Baso % (Auto) Absolute Neuts (auto) Absolute Lymphs (auto) Absolute Monos (auto) Absolute Eos (auto) Absolute Basos (auto) Seg Neutrophils % PT INR APTT Sodium Potassium Chloride Carbon Dioxide Anion Gap BUN Creatinine Est GFR ( Amer) Est GFR (MDRD) Non-Af Glucose POC Glucose 177 H 188 H 165 H Hemoglobin A1c % Calcium Phosphorus Magnesium Total Bilirubin Direct Bilirubin Neonat Total Bilirubin Neonat Direct Bilirubin Neonat Indirect Bili AST ALT Alkaline Phosphatase Total Protein Albumin Urine Color Urine Appearance Urine pH Ur Specific [place] Urine Protein Urine Glucose (UA) Urine Ketones Urine Blood Urine Nitrite Urine Bilirubin Urine Urobilinogen Ur Leukocyte Esterase Urine WBC (Auto) Urine RBC (Auto) Urine Bacteria (Auto) Urine Mucus (Auto) Urine Ascorbic Acid Blood Type Blood Type Confirm Antibody Screen Crossmatch 07/16/19 07/17/19 07/17/19 21:09 05:05 05:05 WBC RBC Hgb Hct MCV MCH MCHC RDW Plt Count Lymph % (Auto) [place] % (Auto) Eos % (Auto) Baso % (Auto) Absolute Neuts (auto) Absolute Lymphs (auto) Absolute Monos (auto) Absolute Eos (auto) Absolute Basos (auto) Seg Neutrophils % PT INR APTT Sodium 138.9 Potassium 4.5 Chloride 107 Carbon Dioxide 27 Anion Gap 5 BUN 43 H Creatinine 0.74 Est GFR ( Amer) > 60 Est GFR (MDRD) Non-Af > 60 Glucose 136 H POC Glucose 171 H Hemoglobin A1c % 5.5 Calcium 7.8 L Phosphorus Magnesium Total Bilirubin Direct Bilirubin Neonat Total Bilirubin Neonat Direct Bilirubin Neonat Indirect Bili AST ALT Alkaline Phosphatase Total Protein Albumin Urine Color Urine Appearance Urine pH Ur Specific [place] Urine Protein Urine Glucose (UA) Urine Ketones Urine Blood Urine Nitrite Urine Bilirubin Urine Urobilinogen Ur Leukocyte Esterase Urine WBC (Auto) Urine RBC (Auto) Urine Bacteria (Auto) Urine Mucus (Auto) Urine Ascorbic Acid Blood Type Blood Type Confirm Antibody Screen Crossmatch 07/17/19 07/17/19 07/17/19 05:05 05:05 06:18 WBC 5.9 RBC 2.09 L Hgb 7.5 L D Hct 21.5 L MCV 103 H MCH 36.1 H MCHC 35.0 RDW 16.0 H Plt Count 76 L Lymph % (Auto) 18.1 Garland % (Auto) 16.7 H Eos % (Auto) 0.9 Baso % (Auto) 0.2 Absolute Neuts (auto) 3.8 Absolute Lymphs (auto) 1.1 Absolute Monos (auto) 1.0 Absolute Eos (auto) 0.1 Absolute Basos (auto) 0.0 Seg Neutrophils % 64.1 PT INR APTT Sodium Potassium Chloride Carbon Dioxide Anion Gap BUN Creatinine Est GFR ( Amer) Est GFR (MDRD) Non-Af Glucose POC Glucose 148 H Hemoglobin A1c % Calcium Phosphorus Magnesium Total Bilirubin Direct Bilirubin Neonat Total Bilirubin Neonat Direct Bilirubin Neonat Indirect Bili AST ALT Alkaline Phosphatase Total Protein Albumin Urine Color Urine Appearance Urine pH Ur Specific [place] Urine Protein Urine Glucose (UA) Urine Ketones Urine Blood Urine Nitrite Urine Bilirubin Urine Urobilinogen Ur Leukocyte Esterase Urine WBC (Auto) Urine RBC (Auto) Urine Bacteria (Auto) Urine Mucus (Auto) Urine Ascorbic Acid Blood Type B POSITIVE Blood Type Confirm B POSITIVE Antibody Screen NEGATIVE Crossmatch See Detail 07/17/19 07/17/19 07/17/19 08:57 08:57 11:31 WBC 5.9 RBC 2.18 L Hgb 7.9 L Hct 22.8 L MCV 105 H MCH 36.4 H MCHC 34.8 RDW 16.2 H Plt Count 76 L Lymph % (Auto) [place] % (Auto) Eos % (Auto) Baso % (Auto) Absolute Neuts (auto) Absolute Lymphs (auto) Absolute Monos (auto) Absolute Eos (auto) Absolute Basos (auto) Seg Neutrophils % PT INR APTT Sodium Potassium Chloride Carbon Dioxide Anion Gap BUN Creatinine Est GFR ( Amer) Est GFR (MDRD) Non-Af Glucose POC Glucose 143 H Hemoglobin A1c % Calcium Phosphorus Magnesium Total Bilirubin Direct Bilirubin Neonat Total Bilirubin Neonat Direct Bilirubin Neonat Indirect Bili AST ALT Alkaline Phosphatase Total Protein Albumin Urine Color Urine Appearance Urine pH Ur Specific [place] Urine Protein Urine Glucose (UA) Urine Ketones Urine Blood Urine Nitrite Urine Bilirubin Urine Urobilinogen Ur Leukocyte Esterase Urine WBC (Auto) Urine RBC (Auto) Urine Bacteria (Auto) Urine Mucus (Auto) Urine Ascorbic Acid Blood Type Blood Type Confirm B POSITIVE Antibody Screen Crossmatch 07/17/19 15:46 WBC RBC Hgb Hct MCV MCH MCHC RDW Plt Count Lymph % (Auto) [place] % (Auto) Eos % (Auto) Baso % (Auto) Absolute Neuts (auto) Absolute Lymphs (auto) Absolute Monos (auto) Absolute Eos (auto) Absolute Basos (auto) Seg Neutrophils % PT INR APTT Sodium Potassium Chloride Carbon Dioxide Anion Gap BUN Creatinine Est GFR ( Amer) Est GFR (MDRD) Non-Af Glucose POC Glucose 128 H Hemoglobin A1c % Calcium Phosphorus Magnesium Total Bilirubin Direct Bilirubin Neonat Total Bilirubin Neonat Direct Bilirubin Neonat Indirect Bili AST ALT Alkaline Phosphatase Total Protein Albumin Urine Color Urine Appearance Urine pH Ur Specific [place] Urine Protein Urine Glucose (UA) Urine Ketones Urine Blood Urine Nitrite Urine Bilirubin Urine Urobilinogen Ur Leukocyte Esterase Urine WBC (Auto) Urine RBC (Auto) Urine Bacteria (Auto) Urine Mucus (Auto) Urine Ascorbic Acid Blood Type Blood Type Confirm Antibody Screen Crossmatch ECHOCARDIOGRAM: The left ventricle is normal in size. There is normal left ventricular wall thickness. LV EF is > than 60% Left ventricular systolic function is normal. The left ventricular wall motion is normal. There is no thrombus. cannot assess ASD,VSD,or PFO. The right ventricle is not well visualized secondary to technical limitations The right atrium is normal. The left atrium is mildly dilated. There is no evidence of mitral valve prolapse. There is no vegetation seen on the mitral valve. There is no mitral valve stenosis. There is a trace amount of mitral regurgitation There is no aortic valvular vegetation. There is no aortic valve stenosis There is no LVOT obstruction. No aortic regurgitation is present. There is no tricuspid stenosis. There is a trace amount of tricuspid regurgitation There is mild pulmonary hypertension by echo RVSP is 35 mm of Hg , with RA mean of 10. There is no pulmonic valvular stenosis. There is no pulmonic valvular regurgitation. The aortic root is normal size. The inferior vena cava was not visualized There is no pericardial effusion. EKG: Atrial fibrillation. No acute ischemia or injury. Impression/recommendation: 1. Fracture right hip for surgical repair of the same 2. Chronic atrial fibrillation with controlled ventricular response 3. Hypertension: Blood pressure well controlled 4. Advanced dementia. 5. Preoperative cardiac risk assessment. MEDICATIONS reviewed. Medication regimen and management plan discussed with attending provider on the case. THE patient WILL BE MODERATE CARDIAC RISK for this surgical procedure. Postoperatively we will watch for any increased heart rate due to his atrial fibrillation.
--- NOTE | 2019-07-17 15:16 | PDOC PROGRESS REPORT ---
Subjective Progress Note for:: 07/17/19 Subjective:: The patient is a 79-year-old male with a past medical history of advanced dementia, resident of the [facility], hypertension, and depression whose history is otherwise limited due to baseline mental status and insufficient medical records from his residential facility. He was admitted 07/15/2019 for right femur fracture and urinary tract infection. The patient was seen on morning rounds. He is found resting in bed comfortably on supplemental oxygen via nasal cannula 2 L/min; per nursing he is not home O2 dependent. He is awake, alert, makes eye contact and smiles at me but answers all questions with "yes." ROS is limited secondary to mental status. He does appear to be comfortable and is not noted to be in any acute distress at this time. Nursing reports that anesthesia has requested formal cardiology consultation for preoperative clearance due to atrial fibrillation noted on EKG. Laboratory work-up this morning also revealed a hemoglobin of 7.5 down from 11 at admission. Reason For Visit: RIGHT FEMUR FRACTURE Physical Exam Vital Signs: Temp Pulse Resp BP Pulse Ox 98.5 F 82 21 H 105/44 L 99 07/17/19 11:27 07/17/19 11:27 07/17/19 11:27 07/17/19 11:27 07/17/19 11:27 Intake & Output 07/16/19 07/17/19 07/18/19 06:59 06:59 06:59 Intake Total 50 2150 1050 Output Total 600 300 Balance -550 1850 1050 Weight 73.5 kg General appearance: PRESENT: no acute distress, well-developed, well-nourished Head exam: PRESENT: atraumatic, normocephalic Eye exam: PRESENT: conjunctiva pink, EOMI, PERRLA. ABSENT: scleral icterus Mouth exam: PRESENT: moist, tongue midline Teeth exam: PRESENT: poor dentation Respiratory exam: PRESENT: clear to auscultation katelin, symmetrical, unlabored, other - Supplemental oxygen via nasal cannula. ABSENT: rales, rhonchi, wheezes Cardiovascular exam: PRESENT: irregular rhythm, +S1, +S2. ABSENT: diastolic murmur, rubs, systolic murmur Pulses: PRESENT: normal dorsalis pedis pul Vascular exam: PRESENT: normal capillary refill GI/Abdominal exam: PRESENT: normal bowel sounds, soft. ABSENT: distended, guarding, mass, organolmegaly, rebound, tenderness Rectal exam: PRESENT: deferred Extremities exam: PRESENT: +2 edema - Right anterior and medial thigh; no ecchymosis noted, other - RLE shortened and externally rotated. ABSENT: calf tenderness, clubbing, pedal edema Neurological exam: PRESENT: alert, awake, CN II-XII grossly intact, aphasic - Expressive aphasia. ABSENT: oriented to person, oriented to place, oriented to time, oriented to situation, motor sensory deficit Psychiatric exam: PRESENT: appropriate affect Skin exam: PRESENT: dry, intact, warm. ABSENT: cyanosis, rash Results Laboratory Results: 07/17/19 08:57 07/17/19 05:05 07/17/19 07/17/19 07/17/19 05:05 05:05 05:05 WBC 5.9 RBC 2.09 L Hgb 7.5 L D Hct 21.5 L MCV 103 H MCH 36.1 H MCHC 35.0 RDW 16.0 H Plt Count 76 L Seg Neutrophils % 64.1 Sodium 138.9 Potassium 4.5 Chloride 107 Carbon Dioxide 27 Anion Gap 5 BUN 43 H Creatinine 0.74 Est GFR ( Amer) > 60 Glucose 136 H Calcium 7.8 L Blood Type B POSITIVE Antibody Screen NEGATIVE 07/17/19 08:57 WBC 5.9 RBC 2.18 L Hgb 7.9 L Hct 22.8 L MCV 105 H MCH 36.4 H MCHC 34.8 RDW 16.2 H Plt Count 76 L Seg Neutrophils % Sodium Potassium Chloride Carbon Dioxide Anion Gap BUN Creatinine Est GFR ( Amer) Glucose Calcium Blood Type Antibody Screen 07/15/19 06:30 Clean Catch Midstream Urine Culture - Final Escherichia Coli Impressions: Elbow X-Ray 07/15/19 03:49 IMPRESSION: No acute abnormality. Hip/Pelvis X-Ray 07/15/19 03:49 IMPRESSION: Displaced and comminuted intertrochanteric fracture of the right femur copyright 2011 [employer]- All Rights Reserved Chest X-Ray 07/15/19 05:40 IMPRESSION: No acute disease. Assessment and Plan - Diagnosis (1) Displaced subtrochanteric fracture of right femur, initial encounter for nelsy sed fracture Is this a current diagnosis for this admission?: Yes Plan: Orthopedics is consulted; primary management per their expertise. Postoperative DVT prophylaxis per orthopedics recommendations. PPI Analgesics as needed. Cardiology is consulted per anesthesia's request for cardiac clearance; echo pending. (2) UTI (urinary tract infection) Qualifiers: Urinary tract infection type: acute cystitis Is this a current diagnosis for this admission?: Yes Plan: Urinalysis revealed UTI. Urine culture confirms cummings-sensitive E. coli. Continue IV Rocephin; Day #3 Continue gentle IVF. (3) Hyperglycemia Is this a current diagnosis for this admission?: Yes Plan: Hgb A1c 5.5% Accu-Cheks every 6 hours with sliding scale insulin. Hypoglycemia protocol in place. (4) Hypertension Is this a current diagnosis for this admission?: Yes Plan: Acceptable blood pressures at present. Continue home dose lisinopril and metoprolol (5) Dementia Is this a current diagnosis for this admission?: Yes Plan: Advanced dementia; resident at the [facility]. Oriented to self and primarily nonverbal at baseline. Supportive care. Continue home medication regiment for mood stability. (6) Acute blood loss anemia Is this a current diagnosis for this admission?: Yes Plan: Multifactorial; secondary to acute displaced femur fracture (could account for up to 1.5 L blood loss) and hemodilution secondary to IV fluids. Patient is slightly hypotensive (105/44) but not tachycardic, tachypneic, or hypoxic. He is typed and crossed for blood transfusion. We will provide 2 units PRBC today. Continue to monitor serial CBC and transfuse as necessary. (7) A-fib Is this a current diagnosis for this admission?: Yes Plan: Continue home dose metoprolol. Echocardiogram pending. Cardiology consulted. - Time Time Spent with patient: 25-34 minutes Medications reviewed and adjusted accordingly: Yes Anticipated discharge: SNF Within: within 72 hours
[2019-07-17] MEDS: DIVALPROEX SODIUM 250 MG TAB.SR.24H PO SCH (21:36)
[2019-07-17] MEDS: TRAZODONE HCL 50 MG TABLET PO SCH (21:36)
[2019-07-18 02:18] LABS: ABSOLUTE EOSINOPHILS # (AUTO) 0.2 10^3/uL (0.0-0.6); ABSOLUTE LYMPHOCYTES (AUTO) 1.1 10^3/uL (0.5-4.7); ABSOLUTE MONOCYTES (AUTO) 0.7 10^3/uL (0.1-1.4); ABSOLUTE NEUT (AUTO) 2.4 10^3/uL (1.7-8.2); BASOPHILS % (AUTO) 0.4 % (0-2); EOSINOPHILS % (AUTO) 4.7 % (0-6); HEMATOCRIT 26.7 % (37.9-51.0); HEMOGLOBIN 9.3 g/dL (13.5-17.0); LYMPHOCYTES % (AUTO) 24.6 % (13-45); MEAN CORPUSCULAR HEMOGLOBIN 34.3 pg (27.0-33.4); MEAN CORPUSCULAR HGB CONC 34.9 g/dL (32.0-36.0); MONOCYTES % (AUTO) 15.8 % (3-13); RED BLOOD COUNT 2.72 10^6/uL (4.35-5.55); RED CELL DISTRIBUTION WIDTH 18.4 % (11.5-14.0); SEGMENTED NEUTROPHILS % (AUTO) 54.5 % (42-78); TOTAL CELLS COUNTED % (AUTO) 100 %; WHITE BLOOD COUNT 4.3 10^3/uL (4.0-10.5)
[2019-07-18 02:40] LABS: MEAN CORPUSCULAR VOLUME 98 fl (80-97); PLATELET COUNT 74 10^3/uL (150-450)
[2019-07-18] MEDS: INSULIN LISPRO 100 UNIT/ML 3 ML VIAL SUBCUT SCH ×3 (08:37→19:25)
[2019-07-18 09:00] LABS: ANION GAP 5 (5-19); BLOOD UREA NITROGEN 30 mg/dL (7-20); CALCIUM 7.7 mg/dL (8.4-10.2); CARBON DIOXIDE 28 mmol/L (22-30); CHLORIDE 107 mmol/L (98-107); GLUCOSE 113 mg/dL (75-110); POTASSIUM 4.2 mmol/L (3.6-5.0)
[2019-07-18] MEDS: NORMAL SALINE 1000 ML 1,000 ML IV PRN ×2 (09:36→20:55)
[2019-07-18] MEDS: CEFTRIAXONE 1 GM/D5W RTU 1 GM/50 ML RTUPB IV SCH (09:36)
[2019-07-18] MEDS: QUETIAPINE FUMARATE 25 MG TABLET PO SCH ×2 (09:37→22:34)
[2019-07-18] MEDS: MULTIVITAMIN TABLET PO SCH (09:37)
[2019-07-18] MEDS: METOPROLOL SUCCINATE 25 MG TAB.SR.24H PO SCH (09:37)
[2019-07-18] MEDS: PANTOPRAZOLE SODIUM 40 MG VIAL IV SCH (09:37)
[2019-07-18] MEDS ORDERED: SUCCINYLCHOLINE CHLORIDE INJ 200 MG/10 ML VIAL ONE (10:03)
[2019-07-18 10:39] LABS: HEMATOCRIT 27.6 % (37.9-51.0); HEMOGLOBIN 9.7 g/dL (13.5-17.0); MEAN CORPUSCULAR HEMOGLOBIN 35.5 pg (27.0-33.4); MEAN CORPUSCULAR HGB CONC 35.1 g/dL (32.0-36.0); MEAN CORPUSCULAR VOLUME 101 fl (80-97); RED BLOOD COUNT 2.73 10^6/uL (4.35-5.55); WHITE BLOOD COUNT 4.4 10^3/uL (4.0-10.5)
[2019-07-18 10:49] LABS: PLATELET COUNT 75 10^3/uL (150-450)
[2019-07-18] MEDS: LISINOPRIL 10 MG TABLET PO SCH (11:16)
[2019-07-18] MEDS ORDERED: INFLUENZA QUAD (6MOS+) 2019-20 VAC 0.5 ML SYR IM ONE (11:19)
[2019-07-18] MEDS ORDERED: LIDOCAINE 2% URO-JET 5 ML KIT MM ONE (11:55)
--- NOTE | 2019-07-18 14:00 | RADIOLOGY REPORT (SQ) ---
EXAM DESCRIPTION: CT ABD/PELVIS NO ORAL OR IV COMPLETED DATE/TIME: 07/18/2019 1:34 pm REASON FOR STUDY: ABLA, fall COMPARISON: None. TECHNIQUE: CT scan of the abdomen and pelvis performed without intravenous or oral contrast. Images reviewed with lung, soft tissue, and bone windows. Reconstructed coronal and sagittal MPR images revi ewed. All images stored on PACS. All CT scanners at this facility use dose modulation, iterative reconstruction, and/or weight based d osing when appropriate to reduce radiation dose to as low as reasonably achievable (ALARA). [facility]: Dose Right [facility]: CareDose [facility]: Dose Right [facility]: Teradose 4D [facility]: [employer] LIMITATIONS: None. FINDINGS: LOWER CHEST: Trace bilateral pleural effusions and bibasilar atelectasis. There is endova scular stent within the LAD. There is no cardiomegaly or pericardial effusion NON-CONTRASTED LIVER, SPLEEN, ADRENALS: Evaluation is limited due to the absence of intravenous contr ast. The liver morphology is non cirrhotic. There is no CT evidence of hepatic steatosis. The sple en is enlarged and measures up to 17.7 cm in AP diameter. The diffuse nodular enlargement of the adr enal glands is nonspecific and could represent adenomatous hyperplasia. PANCREAS: There is no abnormality of the pancreas. GALLBLADDER: Cholelithiasis without pericholecystic fluid, gallbladder wall thickening or biliary clif sia dilate station RIGHT KIDNEY AND URETER: Evaluation is limited due to the absence of intravenous contrast. There is no hydronephrosis, nephrolithiasis, hydroureter or ureterolithiasis. LEFT KIDNEY AND URETER: Evaluation is limited due to the absence of intravenous contrast. There is n o hydronephrosis, nephrolithiasis, hydroureter or ureterolithiasis. AORTA AND RETROPERITONEUM: No aneurysmal dilatation of the abdominal aorta. No retroperitoneal adeno bart, hemorrhage or mass. BOWEL AND PERITONEAL CAVITY: Colonic diverticulosis without other ancillary findings to indicate an a cute diverticulitis. There is no evidence of bowel obstruction, bowel wall thickening, or pericoloni c/ perienteric inflammation. There is no mesenteric adenopathy, free intraperitoneal fluid, or mesen teric/ peritoneal mass. APPENDIX: Normal. PELVIS, BLADDER, AND ABDOMINAL WALL:The prostate gland is enlarged and it measures 6.9 cm in transver se diameter. There is a Cody within the lumen of the urinary bladder ; at the tip of the Cody cath eter there is a nodular hyperdensity that could represent a thrombus. The urinary bladder wall is th ickened and there is no stranding of the perivesicular fat or free fluid in the pelvis. BONES: There is an acute, displaced and comminuted fracture of the proximal right femur. The asymmet alex enlargement of the musculature around the fracture could be related to inflammation or a hematoma . OTHER: The inguinal canals are patulous IMPRESSION: 1. Splenomegaly. 2. Cody catheter within the urinary bladder ; the nodular hyperdensity at the tip of the catheter i s favored to represent thrombus. 3. Acute, comminuted and displaced fracture of the proximal right femur. 4. Enlarged prostate gland. 5. Cholelithiasis. COMMENT: Quality ID # [id number]: Final reports with documentation of one or more dose reduction techniques (e.g., Automated exposure control, adjustment of the mA and/or kV according to patient size, use of iterative reconstruction technique) TECHNICAL DOCUMENTATION: JOB ID: [id number] [employer]- All Rights Reserved Reading location - IP/workstation name: [email or web address]
[2019-07-18] MEDS ORDERED: CEFAZOLIN INJ 1 GM VIAL ONE (15:28)
[2019-07-18] MEDS ORDERED: ONDANSETRON HCL INJ/PF 4 MG/2 ML SDV ONE (15:46)
[2019-07-18] MEDS ORDERED: FENTANYL CITRATE INJ/PF 100 MCG/2 ML AMPUL ONE (15:46)
[2019-07-18] MEDS ORDERED: MIDAZOLAM 2 MG/2 ML INJ ONE (15:46)
[2019-07-18] MEDS ORDERED: DEXAMETHASONE SOD PHOSPHATE INJ 4 MG/1 ML VIAL ONE (15:46)
[2019-07-18] MEDS ORDERED: PROPOFOL INJ 200 MG/20 ML VIAL IV ONE (15:46)
[2019-07-18] MEDS ORDERED: MORPHINE SULFATE 10 MG/ML INJ IV PRN (16:47)
[2019-07-18] MEDS ORDERED: FENTANYL CITRATE INJ/PF 100 MCG/2 ML AMPUL IV PRN ×3 (16:47)
[2019-07-18] MEDS ORDERED: DIPHENHYDRAMINE HCL 50 MG/ML VIAL IV PRN (16:47)
[2019-07-18] MEDS ORDERED: PROMETHAZINE HCL INJ 25 MG/1 ML VIAL IV PRN ×2 (16:47)
[2019-07-18] MEDS ORDERED: ONDANSETRON HCL INJ/PF 4 MG/2 ML SDV IV PRN (16:47)
[2019-07-18] MEDS ORDERED: MEPERIDINE HCL/PF INJ 25 MG/1 ML DISP.SYRIN IV PRN (16:47)
--- NOTE | 2019-07-18 17:43 | PDOC PROGRESS REPORT ---
Subjective Progress Note for:: 07/18/19 Subjective:: The patient is a 79-year-old male with a past medical history of advanced dementia, resident of the [facility], hypertension, and depression whose history is otherwise limited due to baseline mental status and insufficient medical records from his residential facility. He was admitted 07/15/2019 for right femur fracture and urinary tract infection. The patient was seen on afternoon rounds with and daughter at bedside. He is found resting in bed comfortably on room air. He is awake, alert, makes eye contact and smiles at me but answers all questions with "yes." ROS is limited secondary to mental status. He does appear to be comfortable and is not noted to be in any acute distress at this time. Nursing reports gross hematuria to vargas bag. Also having blood tinged urine leak from around vargas catheter. Difficulty with flushing clots today. Reason For Visit: RIGHT FEMUR FRACTURE Physical Exam Vital Signs: Temp Pulse Resp BP Pulse Ox 97.8 F 73 18 140/73 H 99 07/18/19 14:52 07/18/19 14:52 07/18/19 14:52 07/18/19 14:52 07/18/19 14:52 Intake & Output 07/17/19 07/18/19 07/19/19 06:59 06:59 06:59 Intake Total 2150 2990 50 Output Total 300 1300 600 Balance 1850 1690 -550 Weight 73.5 kg 74.1 kg General appearance: PRESENT: no acute distress, well-developed, well-nourished Head exam: PRESENT: atraumatic, normocephalic Eye exam: PRESENT: conjunctiva pink, EOMI, PERRLA. ABSENT: scleral icterus Ear exam: PRESENT: normal external ear exam Mouth exam: PRESENT: moist, tongue midline Teeth exam: PRESENT: poor dentation Respiratory exam: PRESENT: clear to auscultation katelin, symmetrical, unlabored. ABSENT: rales, rhonchi, wheezes Cardiovascular exam: PRESENT: irregular rhythm, +S1, +S2. ABSENT: diastolic murmur, rubs, systolic murmur Pulses: PRESENT: normal dorsalis pedis pul Vascular exam: PRESENT: pallor GI/Abdominal exam: PRESENT: normal bowel sounds, soft, tenderness. ABSENT: distended, guarding, mass, organolmegaly, rebound Rectal exam: PRESENT: deferred Gentrourinary exam: PRESENT: ecchymosis, scrotal swelling, indwelling catheter, other - Edema and ecchymosis to scrotum and penis Extremities exam: PRESENT: tenderness - Right lower extremity is shortened and externally rotated. ABSENT: calf tenderness, clubbing, pedal edema Neurological exam: PRESENT: alert, awake, oriented to person, CN II-XII grossly intact, aphasic - Expressive aphasia, other - Makes eye contact and smiles but does not answer questions or follow directions. ABSENT: oriented to place, oriented to time, oriented to situation, motor sensory deficit Psychiatric exam: PRESENT: appropriate affect, normal mood Skin exam: PRESENT: dry, intact, warm. ABSENT: cyanosis, rash Results Laboratory Results: 07/18/19 09:50 07/18/19 08:01 07/17/19 07/18/19 07/18/19 05:05 02:09 08:01 WBC 4.3 Cancelled RBC 2.72 L Cancelled Hgb 9.3 L Cancelled Hct 26.7 L Cancelled MCV 98 H D Cancelled MCH 34.3 H Cancelled MCHC 34.9 Cancelled RDW 18.4 H Cancelled Plt Count 74 L Cancelled Seg Neutrophils % 54.5 Sodium Potassium Chloride Carbon Dioxide Anion Gap BUN Creatinine Est GFR ( Amer) Glucose Calcium Blood Type B POSITIVE Antibody Screen NEGATIVE 07/18/19 07/18/19 08:01 09:50 WBC 4.4 RBC 2.73 L Hgb 9.7 L Hct 27.6 L MCV 101 H MCH 35.5 H MCHC 35.1 RDW 18.0 H Plt Count 75 L Seg Neutrophils % Sodium 139.7 Potassium 4.2 Chloride 107 Carbon Dioxide 28 Anion Gap 5 BUN 30 H Creatinine 0.59 Est GFR ( Amer) > 60 Glucose 113 H Calcium 7.7 L Blood Type Antibody Screen 07/15/19 06:30 Clean Catch Midstream Urine Culture - Final Escherichia Coli Impressions: Elbow X-Ray 07/15/19 03:49 IMPRESSION: No acute abnormality. Hip/Pelvis X-Ray 07/15/19 03:49 IMPRESSION: Displaced and comminuted intertrochanteric fracture of the right femur copyright 2011 [employer]- All Rights Reserved Chest X-Ray 07/15/19 05:40 IMPRESSION: No acute disease. Abdomen/Pelvis CT 07/18/19 00:00 IMPRESSION: 1. Splenomegaly. 2. Vargas catheter within the urinary bladder ; the nodular hyperdensity at the tip of the catheter is favored to represent thrombus. 3. Acute, comminuted and displaced fracture of the proximal right femur. 4. Enlarged prostate gland. 5. Cholelithiasis. Assessment and Plan - Diagnosis (1) Displaced subtrochanteric fracture of right femur, initial encounter for closed fracture Is this a current diagnosis for this admission?: Yes Plan: Orthopedics is consulted; primary management per their expertise. Postoperative DVT prophylaxis per orthopedic's recommendations. PPI Analgesics as needed. Cardiology has provided surgical risk stratification/clearance. (2) UTI (urinary tract infection) Qualifiers: Urinary tract infection type: acute cystitis Is this a current diagnosis for this admission?: Yes Plan: Urinalysis revealed UTI. Urine culture confirms cummings-sensitive E. coli. Continue IV Rocephin; Day #4 Continue gentle IVF. (3) Hyperglycemia Is this a current diagnosis for this admission?: Yes Plan: Hgb A1c 5.5% Accu-Cheks every 6 hours with sliding scale insulin. Hypoglycemia protocol in place. (4) Hypertension Is this a current diagnosis for this admission?: Yes Plan: Acceptable blood pressures at present. Continue home dose lisinopril and metoprolol (5) Dementia Is this a current diagnosis for this admission?: Yes Plan: Advanced dementia; resident at the [facility]. Oriented to self and primarily nonverbal at baseline. Supportive care. Continue home medication regiment for mood stability. (6) Acute blood loss anemia Is this a current diagnosis for this admission?: Yes Plan: Multifactorial; secondary to acute displaced femur fracture (could account for up to 1.5 L blood loss) and hemodilution secondary to IV fluids. He is typed and crossed for blood transfusion. s/p 2 units PRBC Hgb 11-> 7.5-> 2 units -> 9.3-> 9.7 CT ABD/Pelvis shows splenomegaly but no retroperitoneal hemorrhage. He is noted to have asymmetric enlargement of the musculature around his right femur fracture is likely related to inflammation or hematoma. Continue to monitor serial CBC and transfuse as necessary. (7) A-fib Is this a current diagnosis for this admission?: Yes Plan: Chronic. Continue home dose metoprolol. Cardiology consulted. (8) Hematuria Qualifiers: Hematuria type: gross Qualified Code(s): R31.0 - Gross hematuria Is this a current diagnosis for this admission?: Yes Plan: Likely secondary to traumatic Vargas catheter placement. CT abdomen pelvis demonstrates prostate enlargement and bladder wall thickening. Urinalysis demonstrates UTI, culture shows E. coli. Continue gentle IV fluids and empiric Rocephin. Three-way catheter placed today; start continuous bladder irrigation to prevent obstruction. Titrate flow to pink-tinged urine. (9) Urinary obstruction Is this a current diagnosis for this admission?: Yes Plan: Secondary to gross hematuria with clot formation obstructing catheter drainage. Three-way catheter to continuous bladder irrigation started today. - Time Time Spent with patient: 35 or more minutes Medications reviewed and adjusted accordingly: Yes Anticipated discharge: SNF Within: within 72 hours
--- NOTE | 2019-07-18 18:26 | Operative Report ---
Operative Report DATE OF SURGERY: 07/18/19 PREOPERATIVE DIAGNOSIS: Right hip subtrochanteric femur fracture POSTOPERATIVE DIAGNOSIS: Right hip subtrochanteric femur fracture OPERATION: Cephalo-medullary gamma nail right hip subtrochanteric fracture SURGEON: DORA PENA ANESTHESIA: GA COMPLICATIONS: None ESTIMATED BLOOD LOSS: 100 cc PROCEDURE: Indications for procedure: The patient is a 79-year-old male with advanced dementia. He was found on the ground at a memory facility. He was evaluated in the emergency room at [facility] and diagnosed with a displaced subtrochanteric fracture of the right proximal femur. Description of procedure: Following induction of a general anesthetic and the administration of 2 g of Ancef, the patient was positioned on the fracture table. All bony prominences were padded. The fracture table was used to reduce the fracture. Image intensification demonstrated satisfactory reduction. The right lower extremity was sterilely prepped with ChloraPrep and draped in standard fashion. The correct starting position was found on image intensification. An incision was made through skin with Bovie electrocautery through the subcutaneous tissues. The fascia was opened with a guidewire. The position of the guidewire was checked under image intensification. Once it was centrally within the proximal femur the guidewire was reamed. A long guidewire was placed distally to the epiphyseal scar at the knee. His position was checked under image intensification. Sequential reaming occurred from an 8-1/2 to a 12-1/2. An 11 mm nail was then placed. Using the guide from the gamma nail, a guidewire was placed centrally within the femoral head. The guidewire was measured, reamed, and the appropriate length screw was placed. The screw was locked in a dynamic fashion. Position of the screw was checked under image intensification and found to be correct. We next performed a distal lock using a perfect twin hills technique. Intensification confirmed correct placement of the locking screw at the distal femur and through the nail. The wounds were copiously irrigated. The fascia was closed with 2-0 Vicryl. The subcutaneous tissue was closed with 2-0 Vicryl. The skin was reapproximated with a subcuticular 3-0 Monocryl suture. Steri-Strips and a sterile dressing were appl ied. Patient tolerated procedure well without complications was brought to recovery room in stable condition.
--- NOTE | 2019-07-18 19:32 | RADIOLOGY REPORT (SQ) ---
EXAM DESCRIPTION: NO CHG FLUORO; FEMUR RIGHT COMPLETED DATE/TIME: 07/18/2019 6:18 pm REASON FOR STUDY: FLUORO ASSIST IN OR COMPARISON: None. FLUOROSCOPY TIME: 1.8 minutes 7 Images saved to PACS LIMITATIONS: None. PROCEDURE: ORIF right femoral fracture. FINDINGS: Images from fluoro document placement of a medullary dre in the femur and a long cannulate d screw through the femoral neck. IMPRESSION: ORIF right femoral fracture. Refer to operative note for further information. COMMENT: PQRS 6045F: Fluoroscopy time of the procedure is documented in the report. TECHNICAL DOCUMENTATION: JOB ID: [id number] [employer]- All Rights Reserved Reading location - IP/workstation name: [email or web address]
--- NOTE | 2019-07-18 19:32 | RADIOLOGY REPORT (SQ) ---
EXAM DESCRIPTION: NO CHG FLUORO; FEMUR RIGHT COMPLETED DATE/TIME: 07/18/2019 6:18 pm REASON FOR STUDY: FLUORO ASSIST IN OR COMPARISON: None. FLUOROSCOPY TIME: 1.8 minutes 7 Images saved to PACS LIMITATIONS: None. PROCEDURE: ORIF right femoral fracture. FINDINGS: Images from fluoro document placement of a medullary dre in the femur and a long cannulate d screw through the femoral neck. IMPRESSION: ORIF right femoral fracture. Refer to operative note for further information. COMMENT: PQRS 6045F: Fluoroscopy time of the procedure is documented in the report. TECHNICAL DOCUMENTATION: JOB ID: [id number] [employer]- All Rights Reserved Reading location - IP/workstation name: [email or web address]
[2019-07-18] MEDS: CEFAZOLIN SODIUM 2 GM in DEXTROSE 5%-WATER 100 ML IV SCH (22:31)
[2019-07-18] MEDS: DIVALPROEX SODIUM 250 MG TAB.SR.24H PO SCH (22:32)
[2019-07-18] MEDS: TRAZODONE HCL 50 MG TABLET PO SCH (22:34)
[2019-07-19] MEDS: INSULIN LISPRO 100 UNIT/ML 3 ML VIAL SUBCUT SCH ×5 (00:26→22:44)
[2019-07-19 05:15] LABS: HEMOGLOBIN 9.6 g/dL (13.5-17.0); MEAN CORPUSCULAR HGB CONC 35.4 g/dL (32.0-36.0); RED BLOOD COUNT 2.58 10^6/uL (4.35-5.55); RED CELL DISTRIBUTION WIDTH 17.9 % (11.5-14.0)
[2019-07-19 05:24] LABS: BLOOD UREA NITROGEN 29 mg/dL (7-20); CALCIUM 7.8 mg/dL (8.4-10.2); GLUCOSE 128 mg/dL (75-110)
[2019-07-19 05:37] LABS: MEAN CORPUSCULAR VOLUME 105 fl (80-97); PLATELET COUNT 93 10^3/uL (150-450)
[2019-07-19] MEDS: CEFAZOLIN SODIUM 2 GM in DEXTROSE 5%-WATER 100 ML IV SCH ×3 (05:37→22:43)
[2019-07-19 06:07] LABS: CARBON DIOXIDE 28 mmol/L (22-30); CHLORIDE 109 mmol/L (98-107)
[2019-07-19 06:10] LABS: ANION GAP 3 (5-19)
[2019-07-19] MEDS: PANTOPRAZOLE SODIUM 40 MG VIAL IV SCH (10:11)
[2019-07-19] MEDS: METOPROLOL SUCCINATE 25 MG TAB.SR.24H PO SCH (10:11)
[2019-07-19] MEDS: QUETIAPINE FUMARATE 25 MG TABLET PO SCH ×2 (10:12→22:45)
[2019-07-19] MEDS: MULTIVITAMIN TABLET PO SCH (10:12)
[2019-07-19] MEDS: LISINOPRIL 10 MG TABLET PO SCH (10:12)
--- NOTE | 2019-07-19 10:49 | PDOC PROGRESS REPORT ---
Subjective Progress Note for:: 07/19/19 Subjective:: The patient is a 79-year-old male with a past medical history of advanced dementia, resident of the [facility], hypertension, and depression whose history is otherwise limited due to baseline mental status and insufficient medical records from his residential facility. He was admitted 07/15/2019 for right femur fracture and urinary tract infection. 07/19/2019. No acute events overnight, patient appears comfortable, in no apparent distress, unfortunately due to profound dementia patient does not communicate much. Reason For Visit: RIGHT FEMUR FRACTURE Physical Exam Vital Signs: Temp Pulse Resp BP Pulse Ox 98.0 F 66 18 109/50 L 95 07/18/19 22:00 07/19/19 07:00 07/18/19 22:00 07/18/19 22:00 07/18/19 22:00 Intake & Output 07/18/19 07/19/19 07/20/19 06:59 06:59 06:59 Intake Total 2990 1899 Output Total 1300 7050 Balance 1690 -5151 Weight 74.1 kg 83 kg General appearance: PRESENT: no acute distress, well-developed, well-nourished Respiratory exam: PRESENT: clear to auscultation katelin. ABSENT: rales, rhonchi, wheezes Cardiovascular exam: PRESENT: RRR. ABSENT: diastolic murmur, rubs, systolic murmur Pulses: PRESENT: normal dorsalis pedis pul Extremities exam: PRESENT: full ROM. ABSENT: calf tenderness, clubbing, pedal edema Neurological exam: PRESENT: awake Results Laboratory Results: 07/19/19 04:49 07/19/19 04:49 07/18/19 07/19/19 07/19/19 09:50 04:49 04:49 WBC 4.4 6.0 RBC 2.73 L 2.58 L Hgb 9.7 L 9.6 L Hct 27.6 L 27.0 L MCV 101 H 105 H D MCH 35.5 H 37.0 H MCHC 35.1 35.4 RDW 18.0 H 17.9 H Plt Count 75 L 93 L Sodium 140.0 Potassium 5.0 Chloride 109 H Carbon Dioxide 28 Anion Gap 3 L BUN 29 H Creatinine 0.61 Est GFR ( Amer) > 60 Glucose 128 H Calcium 7.8 L Impressions: Elbow X-Ray 07/15/19 03:49 IMPRESSION: No acute abnormality. Hip/Pelvis X-Ray 07/15/19 03:49 IMPRESSION: Displaced and comminuted intertrochanteric fracture of the right femur copyright 2011 [employer]- All Rights Reserved Chest X-Ray 07/15/19 05:40 IMPRESSION: No acute disease. Abdomen/Pelvis CT 07/18/19 00:00 IMPRESSION: 1. Splenomegaly. 2. Cody catheter within the urinary bladder ; the nodular hyperdensity at the tip of the catheter is favored to represent thrombus. 3. Acute, comminuted and displaced fracture of the proximal right femur. 4. Enlarged prostate gland. 5. Cholelithiasis. Femur X-Ray 07/18/19 00:00 IMPRESSION: ORIF right femoral fracture. Refer to operative note for further information. Fluoroscopy 07/18/19 00:00 IMPRESSION: ORIF right femoral fracture. Refer to operative note for further information. Assessment and Plan - Diagnosis (1) Displaced subtrochanteric fracture of right femur, initial encounter for closed fracture Is this a current diagnosis for this admission?: Yes Plan: Orthopedics is consulted; primary management per their expertise. Postoperative DVT prophylaxis per orthopedic's recommendations. PPI Analgesics as needed. Cardiology has provided surgical risk stratification/clearance. (2) Hematuria Qualifiers: Hematuria type: gross Qualified Code(s): R31.0 - Gross hematuria Is this a current diagnosis for this admission?: Yes Plan: Improving. Likely secondary to traumatic Cody catheter placement. CT abdomen pelvis demonstrates prostate enlargement and bladder wall thickening. Three-way catheter placed on 07/18/2019 for continuous bladder irrigation. Continue bladder irrigation to prevent obstruction, titrate flow to pink-tinged urine. (3) A-fib Qualifiers: Atrial fibrillation type: longstanding persistent Qualified Code(s): I48.11 - Longstanding persistent atrial fibrillation Is this a current diagnosis for this admission?: Yes Plan: Chronic. Rate controlled. Not anticoagulated. Continue home dose metoprolol. (4) Acute blood loss anemia Is this a current diagnosis for this admission?: Yes Plan: Multifactorial; secondary to acute displaced femur fracture (could account for up to 1.5 L blood loss) and hemodilution secondary to IV fluids and gross hematuria. He is typed and crossed for blood transfusion. s/p [address]BC. Hemoglobin stable. CT ABD/Pelvis positive for splenomegaly, negative for any retroperitoneal hemorrhage. Monitor for bleeding, monitor H&H, supportive transfusions. (5) Dementia Is this a current diagnosis for this admission?: Yes Plan: Advanced dementia; resident at the [facility]. Oriented to self and primarily nonverbal at baseline. Continue supportive care, restart home meds. Restart home meds. (6) Hyperglycemia Is this a current diagnosis for this admission?: Yes Plan: Hgb A1c 5.5% Accu-Cheks every 6 hours with sliding scale insulin. Hypoglycemia protocol in place. (7) Hypertension Is this a current diagnosis for this admission?: Yes Plan: Normotensive. Euvolemic. Continue home dose lisinopril and metoprolol Adjust meds as needed. Outpatient PCP follow-up. (8) UTI (urinary tract infection) Qualifiers: Urinary tract infection type: acute cystitis Is this a current diagnosis for this admission?: Yes Plan: Due to E. coli pansensitive. Received 1 dose of ceftriaxone on admission. Received 1 dose of cefazolin by orthopedic surgery.
[2019-07-19] MEDS: MORPHINE SULFATE 10 MG/ML INJ IV PRN (16:56)
--- NOTE | 2019-07-19 17:45 | PDOC PROGRESS REPORT ---
Subjective Progress Note for:: 07/19/19 Subjective:: Patient appears comfortable. He has severe dementia and does not communicate. He is moving his right hip, knee, ankle and foot. Reason For Visit: RIGHT FEMUR FRACTURE POD # 1 s/p gamma nail for right hip subtrochanteric fracture. Physical Exam Vital Signs: Temp Pulse Resp BP Pulse Ox 97.6 F 60 20 140/82 H 97 07/19/19 15:56 07/19/19 15:56 07/19/19 15:56 07/19/19 15:56 07/19/19 15:56 Intake & Output 07/18/19 07/19/19 07/20/19 06:59 06:59 06:59 Intake Total 2990 1899 100 Output Total 1300 7050 Balance 1690 -5151 100 Weight 74.1 kg 83 kg General appearance: PRESENT: no acute distress Musculoskeletal exam: PRESENT: other - The operative dressings are intact. The patient moves the extremity without apparent discomfort. He actively PF and DF the foot. 2+ DP and PT pulses. Results Laboratory Results: 07/19/19 04:49 07/19/19 04:49 07/19/19 07/19/19 04:49 04:49 WBC 6.0 RBC 2.58 L Hgb 9.6 L Hct 27.0 L MCV 105 H D MCH 37.0 H MCHC 35.4 RDW 17.9 H Plt Count 93 L Sodium 140.0 Potassium 5.0 Chloride 109 H Carbon Dioxide 28 Anion Gap 3 L BUN 29 H Creatinine 0.61 Est GFR ( Amer) > 60 Glucose 128 H Calcium 7.8 L Impressions: Elbow X-Ray 07/15/19 03:49 IMPRESSION: No acute abnormality. Hip/Pelvis X-Ray 07/15/19 03:49 IMPRESSION: Displaced and comminuted intertrochanteric fracture of the right femur copyright 2011 [employer]- All Rights Reserved Chest X-Ray 07/15/19 05:40 IMPRESSION: No acute disease. Abdomen/Pelvis CT 07/18/19 00:00 IMPRESSION: 1. Splenomegaly. 2. Cody catheter within the urinary bladder ; the nodular hyperdensity at the tip of the catheter is favored to represent thrombus. 3. Acute, comminuted and displaced fracture of the proximal right femur. 4. Enlarged prostate gland. 5. Cholelithiasis. Femur X-Ray 07/18/19 00:00 IMPRESSION: ORIF right femoral fracture. Refer to operative note for further information. Fluoroscopy 07/18/19 00:00 IMPRESSION: ORIF right femoral fracture. Refer to operative note for further information. Assessment & Plan - Diagnosis (1) Displaced subtrochanteric fracture of right femur, initial encounter for closed fracture Is this a current diagnosis for this admission?: Yes - Time Time Spent with patient: Less than 15 minutes Anticipated discharge: SNF Within: within 48 hours - Plan Summary Plan Summary: POD # 1 s/p gamma nail for subtrochanteric fracture 1. acute blood loss anemia: continue to monitor and transfuse as necessary. 2. severe Dementia: mental status is at baseline. Patient is a poor rehabilitation candidate due to severe dementia. 3. WB status: patient is WBAT 4. DVT prophylaxis: would not recommend LMWH as the patient has a low platelet count. This is a chronic condition per the patient's . Would consider mechanical DVT prophylaxis if the patient tolerates. 5. Disposition: Patient is stable from orthopedic standpoint. May discharge when anemia and urologic conditions stabilize.
[2019-07-19] MEDS: DIVALPROEX SODIUM 250 MG TAB.SR.24H PO SCH (22:44)
[2019-07-19] MEDS: TRAZODONE HCL 50 MG TABLET PO SCH (22:44)
[2019-07-20 08:14] LABS: ALBUMIN 2.4 g/dL (3.5-5.0); ALKALINE PHOSPHATASE 157 U/L (38-126); ANION GAP 5 (5-19); ASPARTATE AMINO TRANSFERASE 48 U/L (17-59); BILIRUBIN,DIRECT 0.6 mg/dL (0.0-0.4); BILIRUBIN,TOTAL 1.5 mg/dL (0.2-1.3); BLOOD UREA NITROGEN 31 mg/dL (7-20); CALCIUM 7.6 mg/dL (8.4-10.2); CARBON DIOXIDE 27 mmol/L (22-30); CHLORIDE 110 mmol/L (98-107); GLUCOSE 114 mg/dL (75-110); POTASSIUM 4.5 mmol/L (3.6-5.0); TOTAL PROTEIN 5.5 g/dL (6.3-8.2)
[2019-07-20 08:15] LABS: ABSOLUTE EOSINOPHILS # (AUTO) 0.2 10^3/uL (0.0-0.6); ABSOLUTE MONOCYTES (AUTO) 0.6 10^3/uL (0.1-1.4); ABSOLUTE NEUT (AUTO) 3.3 10^3/uL (1.7-8.2); BASOPHILS % (AUTO) 0.3 % (0-2); EOSINOPHILS % (AUTO) 4.2 % (0-6); HEMATOCRIT 23.3 % (37.9-51.0); HEMOGLOBIN 8.2 g/dL (13.5-17.0); MEAN CORPUSCULAR HEMOGLOBIN 37.4 pg (27.0-33.4); MEAN CORPUSCULAR HGB CONC 35.3 g/dL (32.0-36.0); MEAN CORPUSCULAR VOLUME 106 fl (80-97); RED CELL DISTRIBUTION WIDTH 18.2 % (11.5-14.0); SEGMENTED NEUTROPHILS % (AUTO) 63.5 % (42-78); TOTAL CELLS COUNTED % (AUTO) 100 %; WHITE BLOOD COUNT 5.1 10^3/uL (4.0-10.5)
[2019-07-20 08:46] LABS: PLATELET COUNT 84 10^3/uL (150-450)
[2019-07-20] MEDS: QUETIAPINE FUMARATE 25 MG TABLET PO SCH ×2 (10:47→21:51)
[2019-07-20] MEDS: METOPROLOL SUCCINATE 25 MG TAB.SR.24H PO SCH (10:47)
[2019-07-20] MEDS: PANTOPRAZOLE SODIUM 40 MG VIAL IV SCH (10:47)
[2019-07-20] MEDS: MULTIVITAMIN TABLET PO SCH (10:48)
[2019-07-20] MEDS: LISINOPRIL 10 MG TABLET PO SCH (10:48)
--- NOTE | 2019-07-20 11:08 | PDOC PROGRESS REPORT ---
Subjective Progress Note for:: 07/20/19 Subjective:: The patient is a 79-year-old male with a past medical history of advanced dementia, resident of the [facility], hypertension, and depression whose history is otherwise limited due to baseline mental status and insufficient medical records from his residential facility. He was admitted 07/15/2019 for right femur fracture and urinary tract infection. 07/19/2019. No acute events overnight, patient appears comfortable, in no apparent distress, unfortunately due to profound dementia patient does not communicate much. 07/20/2019. No acute events overnight. Patient comfortably resting in bed in no apparent distress, unfortunately due to profound dementia patient does not communicate much. He usually says yes to any question you ask him. Ortho also has signed off, urine output is adequate, clear urine. Will DC cath, possible discharge tomorrow if H&H is stable not dropping. Reason For Visit: RIGHT FEMUR FRACTURE Physical Exam Vital Signs: Temp Pulse Resp BP Pulse Ox 97.8 F 66 18 133/82 H 95 07/20/19 08:00 07/20/19 08:00 07/20/19 08:00 07/20/19 08:00 07/20/19 08:00 Intake & Output 07/19/19 07/20/19 07/21/19 06:59 06:59 06:59 Intake Total 1899 700 Output Total 7046 1725 Balance -5151 -1025 Weight 83 kg 85 kg General appearance: PRESENT: no acute distress, well-developed, well-nourished Neck exam: ABSENT: carotid bruit, JVD, lymphadenopathy, thyromegaly Respiratory exam: PRESENT: clear to auscultation katelin. ABSENT: rales, rhonchi, wheezes Cardiovascular exam: PRESENT: RRR. ABSENT: diastolic murmur, rubs, systolic murmur GI/Abdominal exam: PRESENT: normal bowel sounds, soft. ABSENT: distended, guarding, mass, organolmegaly, rebound, tenderness Gentrourinary exam: PRESENT: indwelling catheter Musculoskeletal exam: PRESENT: tenderness - Moves both lower extremities, neurovascular intact. No sign of infection. Neurological exam: PRESENT: alert, awake, other - Does not communicate much due to profound dementia. Results Laboratory Results: 07/20/19 06:53 07/20/19 06:53 07/20/19 07/20/19 06:53 06:53 WBC 5.1 RBC 2.20 L Hgb 8.2 L Hct 23.3 L MCV 106 H MCH 37.4 H MCHC 35.3 RDW 18.2 H Plt Count 84 L Seg Neutrophils % 63.5 Sodium 141.8 Potassium 4.5 Chloride 110 H Carbon Dioxide 27 Anion Gap 5 BUN 31 H Creatinine 0.65 Est GFR ( Amer) > 60 Glucose 114 H Calcium 7.6 L Magnesium 2.3 Total Bilirubin 1.5 H AST 48 Alkaline Phosphatase 157 H Total Protein 5.5 L Albumin 2.4 L Impressions: Elbow X-Ray 07/15/19 03:49 IMPRESSION: No acute abnormality. Hip/Pelvis X-Ray 07/15/19 03:49 IMPRESSION: Displaced and comminuted intertrochanteric fracture of the right femur copyright 2010 [employer]- All Rights Reserved Chest X-Ray 07/15/19 05:40 IMPRESSION: No acute disease. Abdomen/Pelvis CT 07/18/19 00:00 IMPRESSION: 1. Splenomegaly. 2. Cody catheter within the urinary bladder ; the nodular hyperdensity at the tip of the catheter is favored to represent thrombus. 3. Acute, comminuted and displaced fracture of the proximal right femur. 4. Enlarged prostate gland. 5. Cholelithiasis. Femur X-Ray 07/18/19 00:00 IMPRESSION: ORIF right femoral fracture. Refer to operative note for further information. Fluoroscopy 07/18/19 00:00 IMPRESSION: ORIF right femoral fracture. Refer to operative note for further information. Assessment and Plan - Diagnosis (1) Hematuria Qualifiers: Hematuria type: gross Qualified Code(s): R31.0 - Gross hematuria Is this a current diagnosis for this admission?: Yes Plan: Resolved. Urine clear. Due to traumatic Cody catheter placement. CT abdomen pelvis demonstrates prostate enlargement and bladder wall thickening. 07/19/2019. Three-way catheter placed on continuous bladder irrigation. 07/20/2019. DC three-way catheter as patient is producing clear urine, no sign of hematuria. Continue monitoring urinary output continue monitoring for hematuria, Daily H&H. (2) Displaced subtrochanteric fracture of right femur, initial encounter for closed fracture Is this a current diagnosis for this admission?: Yes Plan: Day 2 status post gamma nail for subtrochanteric fracture. Orthopedic surgery has signed off. Outpatient follow-up recommended. Continue PT, DVT prophylaxis, supportive measures. Cardiology has provided surgical risk stratification/clearance. (3) A-fib Qualifiers: Atrial fibrillation type: longstanding persistent Qualified Code(s): I48.11 - Longstanding persistent atrial fibrillation Is this a current diagnosis for this admission?: Yes Plan: Chronic. Rate controlled. Not anticoagulated. Continue home dose metoprolol. (4) Acute blood loss anemia Is this a current diagnosis for this admission?: Yes Plan: Macrocytic anemia. Multifactorial. Likely due to acute femur fracture, hematuria, and possibly due to nutritional deficiency and likely due to low p.o. intake. Status post 2 PRBC transfusion on this admission. H&H is stable. CT ABD/Pelvis positive for splenomegaly, negative for any retroperitoneal hemorrhage. Given microcytic anemia and profound dementia will check for TSH, B12 and folic acid level as well as iron panel. Monitor for bleeding, monitor H&H, supportive transfusions. (5) Dementia Is this a current diagnosis for this admission?: Yes Plan: Advanced dementia. Minimal communication. Resident at the [facility]. Oriented to self and primarily nonverbal at baseline. Check for TSH, T3, T4 Continue supportive care, restart home meds. (6) Hyperglycemia Is this a current diagnosis for this admission?: Yes Plan: Improving. Hgb A1c 5.5% Accu-Cheks every 6 hours with sliding scale insulin. Hypoglycemia protocol in place. (7) Hypertension Is this a current diagnosis for this admission?: Yes Plan: Normotensive. Euvolemic. Continue home dose lisinopril and metoprolol Adjust meds as needed. Outpatient PCP follow-up. (8) UTI (urinary tract infection) Qualifiers: Urinary tract infection type: acute cystitis Is this a current diagnosis for this admission?: Yes Plan: Due to E. coli pansensitive. Received 1 dose of ceftriaxone on admission. Received 1 dose of cefazolin by orthopedic surgery.
[2019-07-20 11:19] LABS: IRON(TIBC) 46.3 ug/dL (49-181)
[2019-07-20 11:33] LABS: ABSOLUTE RETICS # 0.166 10^6/uL (0.028-0.122); RETICULOCYTE COUNT (AUTO) 7.51 % (0.66-2.85)
[2019-07-20 11:36] LABS: FREE T3 2.65 pg/mL (2.77-5.27); FREE T4 (FREE THYROXINE) 1.62 ng/dL (0.78-2.19)
[2019-07-20 11:50] LABS: THYROID STIMULATING HORMONE 2.9 uIU/mL (0.47-4.68)
[2019-07-20] MEDS: MORPHINE SULFATE 10 MG/ML INJ IV PRN ×2 (12:27→16:31)
[2019-07-20] MEDS: INSULIN LISPRO 100 UNIT/ML 3 ML VIAL SUBCUT SCH ×4 (14:40→21:41)
[2019-07-20] MEDS: NORMAL SALINE 1000 ML 1,000 ML IV PRN (16:10)
[2019-07-20] MEDS ORDERED: FERRIC CARBOXYMALTOSE INJ 750 MG/15 ML VIAL IV PRN (18:00)
[2019-07-20] MEDS: DIVALPROEX SODIUM 250 MG TAB.SR.24H PO SCH (21:50)
[2019-07-20] MEDS: TRAZODONE HCL 50 MG TABLET PO SCH (21:50)
[2019-07-21 06:22] LABS: ABSOLUTE EOSINOPHILS # (AUTO) 0.2 10^3/uL (0.0-0.6); ABSOLUTE MONOCYTES (AUTO) 0.4 10^3/uL (0.1-1.4); ABSOLUTE NEUT (AUTO) 2.2 10^3/uL (1.7-8.2); BASOPHILS % (AUTO) 0.3 % (0-2); EOSINOPHILS % (AUTO) 4.8 % (0-6); HEMATOCRIT 21.1 % (37.9-51.0); LYMPHOCYTES % (AUTO) 26.2 % (13-45); MEAN CORPUSCULAR HEMOGLOBIN 36.7 pg (27.0-33.4); MEAN CORPUSCULAR HGB CONC 35.5 g/dL (32.0-36.0); MEAN CORPUSCULAR VOLUME 104 fl (80-97); MONOCYTES % (AUTO) 10.6 % (3-13); RED BLOOD COUNT 2.04 10^6/uL (4.35-5.55); RED CELL DISTRIBUTION WIDTH 18.2 % (11.5-14.0); SEGMENTED NEUTROPHILS % (AUTO) 58.1 % (42-78); TOTAL CELLS COUNTED % (AUTO) 100 %; WHITE BLOOD COUNT 3.8 10^3/uL (4.0-10.5)
[2019-07-21 06:41] LABS: ALBUMIN 2.1 g/dL (3.5-5.0); ALKALINE PHOSPHATASE 167 U/L (38-126); ASPARTATE AMINO TRANSFERASE 43 U/L (17-59); BILIRUBIN,DIRECT 0.6 mg/dL (0.0-0.4); BILIRUBIN,TOTAL 1.8 mg/dL (0.2-1.3); BLOOD UREA NITROGEN 32 mg/dL (7-20); CALCIUM 7.5 mg/dL (8.4-10.2); CHLORIDE 110 mmol/L (98-107); GLUCOSE 119 mg/dL (75-110); POTASSIUM 4.4 mmol/L (3.6-5.0)
[2019-07-21 06:46] LABS: CARBON DIOXIDE 28 mmol/L (22-30)
[2019-07-21 06:48] LABS: ANION GAP 3 (5-19)
[2019-07-21 06:53] LABS: PLATELET COUNT 80 10^3/uL (150-450)
[2019-07-21 06:54] LABS: HEMOGLOBIN 7.5 g/dL (13.5-17.0)
[2019-07-21] MEDS: MORPHINE SULFATE 10 MG/ML INJ IV PRN ×2 (08:42→18:17)
[2019-07-21] MEDS: LISINOPRIL 10 MG TABLET PO SCH (10:12)
[2019-07-21] MEDS: METOPROLOL SUCCINATE 25 MG TAB.SR.24H PO SCH (10:13)
[2019-07-21] MEDS: MULTIVITAMIN TABLET PO SCH (10:13)
[2019-07-21] MEDS: CEPHALEXIN 500 MG CAPSULE PO SCH ×2 (10:14→22:13)
[2019-07-21] MEDS: PANTOPRAZOLE SODIUM 40 MG VIAL IV SCH (10:16)
[2019-07-21] MEDS: QUETIAPINE FUMARATE 25 MG TABLET PO SCH ×2 (10:16→22:10)
--- NOTE | 2019-07-21 10:17 | PDOC PROGRESS REPORT ---
Subjective Progress Note for:: 07/21/19 Subjective:: The patient is a 79-year-old male with a past medical history of advanced dementia, resident of the [facility], hypertension, and depression whose history is otherwise limited due to baseline mental status and insufficient medical records from his residential facility. He was admitted 07/15/2019 for right femur fracture and urinary tract infection. 07/19/2019. No acute events overnight, patient appears comfortable, in no apparent distress, unfortunately due to profound dementia patient does not communicate much. 07/20/2019. No acute events overnight. Patient comfortably resting in bed in no apparent distress, unfortunately due to profound dementia patient does not communicate much. He usually says yes to any question you ask him. Ortho also has signed off, urine output is adequate, clear urine. Will DC cath, possible discharge tomorrow if H&H is stable not dropping. 07/21/2019. No acute events overnight. Patient has been having adequate urine output, no hematuria reported however his hemoglobin is dropping. Unfortunately due to profound dementia patient does not communicate much, states he is pretty much to any question asked him, moves all extremities, grimaces on the palpation of the left hip. Reason For Visit: RIGHT FEMUR FRACTURE Physical Exam Vital Signs: Temp Pulse Resp BP Pulse Ox 97.9 F 82 19 124/51 L 94 07/21/19 08:00 07/21/19 08:00 07/21/19 08:00 07/21/19 08:00 07/21/19 08:00 Intake & Output 07/20/19 07/21/19 07/22/19 06:59 06:59 06:59 Intake Total 2333 788 8300 Output Total 1725 550 Balance -25 47 1000 Weight 85 kg 84.8 kg General appearance: PRESENT: no acute distress, well-developed, well-nourished Respiratory exam: PRESENT: clear to auscultation katelin. ABSENT: rales, rhonchi, wheezes Cardiovascular exam: PRESENT: RRR. ABSENT: diastolic murmur, rubs, systolic murmur GI/Abdominal exam: PRESENT: normal bowel sounds, soft. ABSENT: distended, guarding, mass, organolmegaly, rebound, tenderness Extremities exam: PRESENT: tenderness - Tender to palpation over lateral aspect of the left hip, no erythema or swelling, neurovascularly intact. Moves all 4 extremities. Neurological exam: PRESENT: awake Results Laboratory Results: 07/21/19 05:37 07/21/19 05:37 07/20/19 07/20/19 07/20/19 06:53 06:53 06:53 WBC RBC Hgb Hct MCV MCH MCHC RDW Plt Count Seg Neutrophils % Retic Count (auto) 7.51 H Sodium Potassium Chloride Carbon Dioxide Anion Gap BUN Creatinine Est GFR ( Amer) Glucose Calcium Magnesium Iron 46.3 L TIBC 248 L % Saturation 19 Ferritin 148.00 Total Bilirubin AST Alkaline Phosphatase Total Protein Albumin Vitamin B12 488.0 Folate 10.20 TSH 2.90 Free T4 1.62 Free T3 pg/mL 2.65 L 07/21/19 07/21/19 05:37 05:37 WBC 3.8 L RBC 2.04 L Hgb 7.5 L Hct 21.1 L MCV 104 H MCH 36.7 H MCHC 35.5 RDW 18.2 H Plt Count 80 L Seg Neutrophils % 58.1 Retic Count (auto) Sodium 140.7 Potassium 4.4 Chloride 110 H Carbon Dioxide 28 Anion Gap 3 L BUN 32 H Creatinine 0.58 Est GFR ( Amer) > 60 Glucose 119 H Calcium 7.5 L Magnesium 2.2 Iron TIBC % Saturation Ferritin Total Bilirubin 1.8 H AST 43 Alkaline Phosphatase 167 H Total Protein 5.0 L Albumin 2.1 L Vitamin B12 Folate TSH Free T4 Free T3 pg/mL Impressions: Elbow X-Ray 07/15/19 03:49 IMPRESSION: No acute abnormality. Hip/Pelvis X-Ray 07/15/19 03:49 IMPRESSION: Displaced and comminuted intertrochanteric fracture of the right femur copyright 2011 [employer]- All Rights Reserved Chest X-Ray 07/15/19 05:40 IMPRESSION: No acute disease. Abdomen/Pelvis CT 07/18/19 00:00 IMPRESSION: 1. Splenomegaly. 2. Cody catheter within the urinary bladder ; the nodular hyperdensity at the tip of the catheter is favored to represent thrombus. 3. Acute, comminuted and displaced fracture of the proximal right femur. 4. Enlarged prostate gland. 5. Cholelithiasis. Femur X-Ray 07/18/19 00:00 IMPRESSION: ORIF right femoral fracture. Refer to operative note for further information. Fluoroscopy 07/18/19 00:00 IMPRESSION: ORIF right femoral fracture. Refer to operative note for further information. Assessment and Plan - Diagnosis (1) Acute blood loss anemia Is this a current diagnosis for this admission?: Yes Plan: Macrocytic anemia exacerbated due to traumatic hematuria. Multifactorial. Likely due to acute femur fracture, hematuria, and possibly due to nutritional deficiency and likely due to low p.o. intake. Status post 2 PRBC transfusion on this admission. H&H is stable. CT ABD/Pelvis positive for splenomegaly, negative for any retroperitoneal hemorrhage. TSH, B12 and folic acid levels WNL. Iron panel suggestive of iron deficiency anemia. Received 1 dose of Injectafer yesterday. Will DC on iron supplementation. Monitor H&H, transfuse if less than 7 or symptomatic. (2) Hematuria Qualifiers: Hematuria type: gross Qualified Code(s): R31.0 - Gross hematuria Is this a current diagnosis for this admission?: Yes Plan: Resolved. Urine clear. Due to traumatic Cody catheter placement. CT abdomen pelvis demonstrates prostate enlargement and bladder wall thickening. 07/19/2019. Three-way catheter placed on continuous bladder irrigation. 07/20/2019. DC three-way catheter as patient is producing clear urine, no sign of hematuria. Continue monitoring urinary output continue monitoring for hematuria, Daily H&H. (3) Displaced subtrochanteric fracture of right femur, initial encounter for closed fracture Is this a current diagnosis for this admission?: Yes Plan: Day 3 status post gamma nail for subtrochanteric fracture. Orthopedic surgery has signed off. Outpatient follow-up recommended. Continue PT, DVT prophylaxis, supportive measures. Cardiology has provided surgical risk stratification/clearance. Plan will be to transfer to rehab for continuing outpatient PT. (4) A-fib Qualifiers: Atrial fibrillation type: longstanding persistent Qualified Code(s): I48.11 - Longstanding persistent atrial fibrillation Is this a current diagnosis for this admission?: Yes Plan: Chronic. Rate controlled. Not anticoagulated. Continue home dose metoprolol. (5) Dementia Is this a current diagnosis for this admission?: Yes Plan: Advanced dementia. Minimal communication. Resident at the [facility]. Oriented to self and primarily nonverbal at baseline. TSH, T3, T4, B12 and folic acid WNL. Continue supportive care, restart home meds. (6) Hyperglycemia Is this a current diagnosis for this admission?: Yes Plan: Improving. Hgb A1c 5.5% Accu-Cheks every 6 hours with sliding scale insulin. Hypoglycemia protocol in place. (7) Hypertension Is this a current diagnosis for this admission?: Yes Plan: Normotensive. Euvolemic. Continue home dose lisinopril and metoprolol Adjust meds as needed. Outpatient PCP follow-up. (8) UTI (urinary tract infection) Qualifiers: Urinary tract infection type: acute cystitis Is this a current diagnosis for this admission?: Yes Plan: Due to E. coli pansensitive. Received 1 dose of ceftriaxone on admission. Received 1 dose of cefazolin by orthopedic surgery. Day / Keflex 500 p.o. twice daily.
[2019-07-21] MEDS: INSULIN LISPRO 100 UNIT/ML 3 ML VIAL SUBCUT SCH ×3 (16:16→22:12)
[2019-07-21] MEDS: DIVALPROEX SODIUM 250 MG TAB.SR.24H PO SCH (22:11)
[2019-07-21] MEDS: TRAZODONE HCL 50 MG TABLET PO SCH (22:11)
[2019-07-22 05:24] LABS: ABSOLUTE EOSINOPHILS # (AUTO) 0.2 10^3/uL (0.0-0.6); ABSOLUTE LYMPHOCYTES (AUTO) 0.9 10^3/uL (0.5-4.7); ABSOLUTE MONOCYTES (AUTO) 0.4 10^3/uL (0.1-1.4); ABSOLUTE NEUT (AUTO) 2.4 10^3/uL (1.7-8.2); BASOPHILS % (AUTO) 0.4 % (0-2); EOSINOPHILS % (AUTO) 5.9 % (0-6); HEMATOCRIT 22.4 % (37.9-51.0); LYMPHOCYTES % (AUTO) 22.3 % (13-45); MEAN CORPUSCULAR HEMOGLOBIN 36.3 pg (27.0-33.4); MEAN CORPUSCULAR VOLUME 104 fl (80-97); MONOCYTES % (AUTO) 10.9 % (3-13); RED BLOOD COUNT 2.16 10^6/uL (4.35-5.55); SEGMENTED NEUTROPHILS % (AUTO) 60.5 % (42-78); TOTAL CELLS COUNTED % (AUTO) 100 %; WHITE BLOOD COUNT 3.9 10^3/uL (4.0-10.5)
[2019-07-22 05:30] LABS: ALBUMIN 2.3 g/dL (3.5-5.0); ALKALINE PHOSPHATASE 219 U/L (38-126); ASPARTATE AMINO TRANSFERASE 59 U/L (17-59); BILIRUBIN,DIRECT 0.6 mg/dL (0.0-0.4); BLOOD UREA NITROGEN 27 mg/dL (7-20); CALCIUM 7.7 mg/dL (8.4-10.2); CARBON DIOXIDE 29 mmol/L (22-30); CHLORIDE 106 mmol/L (98-107); GLUCOSE 121 mg/dL (75-110); POTASSIUM 4.7 mmol/L (3.6-5.0); TOTAL PROTEIN 5.4 g/dL (6.3-8.2)
[2019-07-22 05:39] LABS: ANION GAP 3 (5-19)
[2019-07-22 05:54] LABS: HEMOGLOBIN 7.9 g/dL (13.5-17.0)
[2019-07-22 05:55] LABS: PLATELET COUNT 85 10^3/uL (150-450)
[2019-07-22] MEDS: INSULIN LISPRO 100 UNIT/ML 3 ML VIAL SUBCUT SCH ×4 (08:21→23:09)
[2019-07-22] MEDS: LISINOPRIL 10 MG TABLET PO SCH (10:32)
[2019-07-22] MEDS: QUETIAPINE FUMARATE 25 MG TABLET PO SCH ×2 (10:32→23:06)
[2019-07-22] MEDS: METOPROLOL SUCCINATE 25 MG TAB.SR.24H PO SCH (10:32)
[2019-07-22] MEDS: CEPHALEXIN 500 MG CAPSULE PO SCH ×2 (10:32→23:08)
[2019-07-22] MEDS: PANTOPRAZOLE SODIUM 40 MG VIAL IV SCH (10:32)
[2019-07-22] MEDS: MULTIVITAMIN TABLET PO SCH (10:33)
--- NOTE | 2019-07-22 13:10 | PDOC TRANSFER SUMMARY ---
General Admission Date/PCP: 07/15/19 07:46 JOHNY BLACKP-C Admission Date: 07/15/19 Transfer Date: 07/25/19 - [facility] Resuscitation Status: Full Code - Transfer Diagnosis (1) Acute blood loss anemia Is this a current diagnosis for this admission?: Yes (2) Displaced subtrochanteric fracture of right femur, initial encounter for closed fracture Is this a current diagnosis for this admission?: Yes (3) Hematuria Is this a current diagnosis for this admission?: Yes (4) A-fib Is this a current diagnosis for this admission?: Yes (5) Dementia Is this a current diagnosis for this admission?: Yes (6) Hyperglycemia Is this a current diagnosis for this admission?: Yes (7) Hypertension Is this a current diagnosis for this admission?: Yes (8) UTI (urinary tract infection) Is this a current diagnosis for this admission?: Yes - Transfer Medications Home Medications: Acetaminophen [Tylenol] 650 mg PO Q6HP PRN 07/15/19 Ammonium Lactate [Lac-Hydrin 12% Lotion 225Gm/Bottle] 1 applic TP Q12 07/15/19 Divalproex Sodium [Depakote] 250 mg PO QHS 07/15/19 Guaifenesin [Mucus-Chest Congestion] 10 ml PO Q4HP PRN 07/15/19 Ivermectin [Stromectol 3 mg Tablet] 15 mg PO FR@0800 07/15/19 Lisinopril 20 mg PO DAILY 07/15/19 Magnesium Hydroxide [Milk of Magnesia 30 ml Udcup] 30 ml PO DAILYP PRN 07/15/19 Metoprolol Succinate [Toprol Xl 25 mg Tab.sr] 25 mg PO DAILY 07/15/19 Multivitamin [Daily Multiple Vitamin] 1 each PO DAILY 07/15/19 Quetiapine Fumarate [Seroquel 25 mg Tablet] 25 mg PO Q12 07/15/19 Trazodone HCl [Desyrel 50 mg Tablet] 25 mg PO QHS 07/15/19 Zinc Oxide [Desitin] 1 applic TP QID 07/15/19 Transfer Medications: Current Medications Cephalexin HCl (Keflex 500 Mg Capsule) 500 mg PO Q12 ANAMARIA Stop: 07/28/19 09:59 Last Admin: 07/22/19 10:32 Dose: 500 mg Documented by: Dextrose (Dextrose Inj 50% Syringe (25 Gm/50 Ml)) 12.5 gm IV PRN PRN; Protocol PRN Reason: FOR BG 50-69 IN ALERT PATIENT Stop: 08/14/19 07:56 Dextrose (Dextrose Inj 50% Syringe (25 Gm/50 Ml)) 25 gm IV PRN PRN; Protocol PRN Reason: PER PROTOCOL Stop: 08/14/19 07:56 Divalproex Sodium (Depakote Er 250 Mg Tablet) 250 mg PO QHS [facility] Stop: 08/15/19 21:59 Last Admin: 07/21/19 22:11 Dose: 250 mg Documented by: Ferric Carboxymaltose (Injectafer Inj 750 Mg/15 Ml Vial) 750 mg IV ONCE PRN PRN Reason: iron def anemia Stop: 08/19/19 17:59 Glucagon (Glucagen Inj 1 Mg Vial) 1 mg IM PRN PRN; Protocol PRN Reason: Evaluate for BG < 70 Stop: 08/14/19 07:56 Glucose (Glutose 40% Gel 15 Gm Tube) 15 gm PO PRN PRN; Protocol PRN Reason: FOR BG 50-69 IN ALERT PATIENT Stop: 08/14/19 07:56 Glucose (Glutose 40% Gel 15 Gm Tube) 30 gm PO PRN PRN; Protocol PRN Reason: FOR BG < 50 IN ALERT PATIENT Stop: 08/14/19 07:56 Hydralazine HCl (Apresoline Inj/Pf 20 Mg/1 Ml Sdv) 10 mg IV Q6HP PRN PRN Reason: Give For Sbp > [160] Stop: 08/14/19 07:57 Sodium Chloride (Nacl 0.9% 1000 Ml Iv Soln) 1,000 mls @ 75 mls/hr IV CONTINUOUS PRN PRN Reason: THIS MED IS NOT "PRN" Stop: 08/14/19 07:47 Last Infusion: 07/21/19 07:52 Dose: Infused Documented by: Insulin Human Lispro (Humalog Insulin 100 Unit/1 Ml 3 Ml Vial) 0 - [address] [facility]; Protocol Stop: 08/14/19 07:59 Last Admin: 07/22/19 12:01 Dose: Not Given Documented by: Lisinopril (Prinivil 10 Mg Tablet) 20 mg PO DAILY [facility] Stop: 08/15/19 09:59 Last Admin: 07/22/19 10:32 Dose: 20 mg Documented by: Lorazepam (Ativan 0.5 Mg Tablet) 0.5 mg PO DAILYP PRN PRN Reason: AGITATION Stop: 07/23/19 08:37 Metoprolol Succinate (Toprol Xl 25 Mg Tab.Sr) 25 mg PO DAILY ANAM[facility]IA Stop: 08/15/19 09:59 Last Admin: 07/22/19 10:32 Dose: 25 mg Documented by: Morphine Sulfate (Morphine 10 Mg/Ml Inj) 2 mg IV Q4HP PRN PRN Reason: FOR PAIN Stop: 07/28/19 07:55 Last Admin: 07/21/19 18:17 Dose: 2 mg Documented by: Multivitamins (Tab-A-Becky (Multiple Vitamin) Tablet) 1 tab PO DAILY ANAMARIA Stop: 08/17/19 09:59 Last Admin: 07/22/19 10:33 Dose: 1 tab Documented by: Ondansetron HCl (Zofran Inj/Pf 4 Mg/2 Ml Sdv) 4 mg IV Q8HP PRN PRN Reason: FOR NAUSEA/VOMITING Stop: 08/14/19 07:47 Pantoprazole Sodium (Protonix Iv Inj 40 Mg Vial) 40 mg IV DAILY ANAMARIA Stop: 07/24/19 09:59 Last Admin: 07/22/19 10:32 Dose: 40 mg Documented by: Quetiapine Fumarate (Seroquel 25 Mg Tablet) 25 mg PO Q12 ANAMARIA Stop: 08/15/19 09:59 Last Admin: 07/22/19 10:32 Dose: 25 mg Documented by: Sodium Chloride (Saline Flush 2.5 Ml Monoject Prefil Syrin) 2.5 ml IV Q8 ANAMARIA Stop: 08/14/19 13:59 Last Admin: 07/22/19 06:50 Dose: Not Given Documented by: Trazodone HCl (Desyrel 50 Mg Tablet) 25 mg PO QHS A[facility] Stop: 08/15/19 21:59 Last Admin: 07/21/19 22:11 Dose: 25 mg Documented by: - Allergies Allergies/Adverse Reactions: No Known Allergies Allergy (Verified 07/15/19 05:36) Hospital Course Hospital Course: The patient is a 79-year-old male with a past medical history of advanced dementia, resident of the [facility], hypertension, and depression whose history is otherwise limited due to baseline mental status and insufficient medical records from his residential facility. He was admitted 07/15/2019 for right femur fracture and urinary tract infection. (1) Acute blood loss anemia Improving. H&H trending up. Hemoglobin today 10.2 g/dL. Chrnoic anemia exacerbated due to traumatic hematuria, acute femur fracture, hematuria, and possibly due to nutritional deficiency and likely due to low p.o. intake. Received 2 PRBC transfusion on this admission CT ABD/Pelvis positive for splenomegaly, negative for any retroperitoneal hemorrhage. TSH, B12 and folic acid levels WNL. Iron panel suggestive of iron deficiency anemia. Received 1 dose of Injectafer yesterday. Needs to continue on p.o. on supplementation upon discharge. Needs to follow-up with PCP as soon as possible for reevaluation of his anemia. (2) Hematuria Resolved. Urine clear, still has residual scrotal ecchymosis which are improvi ng. This was due to traumatic Cody catheter placement. CT abdomen pelvis demonstrates prostate enlargement and bladder wall thickening. 07/19/2019. Three-way catheter placed on continuous bladder irrigation. 07/20/2019. DC three-way catheter as patient is producing clear urine, no sign of hematuria. Patient needs to be closely monitored for any recurrence of gross hematuria and sent to ED immediately. (3) Displaced subtrochanteric fracture of right femur, initial encounter for closed fracture Status post gamma nail for subtrochanteric fracture. Received PT, DVT prophylaxis while inpatient. Cardiology has provided surgical risk stratification/clearance. Patient is to continue rehab and follow-up with orthopedic surgery in 1 to 2 weeks. Patient is still plan will be to transfer to rehab for continuing outpatient PT. Due to advance dementia patient does not communicate any pain however when touched on the right hip he grimaces and withdraws. He has been on scheduled Tylenol for pain. I have avoided opioids due to risk of fall. Please continue non-opioid analgesics for pain control if needed. Needs to follow-up with orthopedic surgery as outpatient in 1 to 2 weeks. (4) A-fib Chronic. Rate controlled. Not anticoagulated. Continued on metoprolol. Restart home meds upon discharge. Follow-up with PCP and cardiology. (5) Dementia Advanced dementia. Minimal communication. Resident at the [facility]. Nonverbal solid time. Answers yes to pretty much any question asked. TSH, T3, T4, B12 and folic acid WNL. Continue supportive care, restart home meds. (6) Hyperglycemia Patient may have diabetes however has Hgb A1c 5.5% which could be falsely decreased due to anemia. He was placed diabetic diet and Accu-Cheks every 6 hours with sliding scale insulin. Patient's blood glucose level needs to be checked routinely and continued diabetic diet and follow-up with PCP for evaluation of hemoglobin A1c once his anemia resolved. (7) Hypertension Normotensive. Euvolemic. Continue home dose lisinopril and metoprolol (8) UTI (urinary tract infection) Due to E. coli pansensitive. Received 1 dose of ceftriaxone on admission. Received 1 dose of cefazolin by orthopedic surgery. Complected a course of Keflex 500 p.o. twice daily. Physical Exam Vital Signs: Temp Pulse Resp BP Pulse Ox 97.5 F 83 20 97/62 L 95 07/22/19 04:00 07/22/19 04:00 07/22/19 04:00 07/22/19 04:00 07/22/19 04:00 Intake & Output 07/21/19 07/22/19 07/23/19 06:59 06:59 06:59 Intake Total 597 1760 Output Total 550 Balance 47 1760 Weight 84.8 kg 86.7 kg General appearance: PRESENT: no acute distress, well-developed, well-nourished Respiratory exam: PRESENT: clear to auscultation katelin. ABSENT: rales, rhonchi, wheezes Cardiovascular exam: PRESENT: RRR. ABSENT: diastolic murmur, rubs, systolic murmur GI/Abdominal exam: PRESENT: normal bowel sounds, soft. ABSENT: distended, guarding, mass, organolmegaly, rebound, tenderness Extremities exam: PRESENT: tenderness - Rt hip TTP over surigcal wound. no dishcarge, no erythema. ABSENT: calf tenderness, clubbing, pedal edema Neurological exam: PRESENT: alert, awake, CN II-XII grossly intact - by ovservation. patient does not fallow any commmand due advanced dementia. Results Laboratory Results: 07/22/19 04:48 07/22/19 04:48 07/22/19 07/22/19 04:48 04:48 WBC 3.9 L RBC 2.16 L Hgb 7.9 L Hct 22.4 L MCV 104 H MCH 36.3 H MCHC 35.0 RDW 18.0 H Plt Count 85 L Seg Neutrophils % 60.5 Sodium 137.8 Potassium 4.7 Chloride 106 Carbon Dioxide 29 Anion Gap 3 L BUN 27 H Creatinine 0.60 Est GFR ( Amer) > 60 Glucose 121 H Calcium 7.7 L Total Bilirubin 2.0 H AST 59 Alkaline Phosphatase 219 H Total Protein 5.4 L Albumin 2.3 L Impressions: Elbow X-Ray 07/15/19 03:49 IMPRESSION: No acute abnormality. Hip/Pelvis X-Ray 07/15/19 03:49 IMPRESSION: Displaced and comminuted intertrochanteric fracture of the right femur copyright 2010 [employer]- All Rights Reserved Chest X-Ray 07/15/19 05:40 IMPRESSION: No acute disease. Abdomen/Pelvis CT 07/18/19 00:00 IMPRESSION: 1. Splenomegaly. 2. Cody catheter within the urinary bladder ; the nodular hyperdensity at the tip of the catheter is favored to represent thrombus. 3. Acute, comminuted and displaced fracture of the proximal right femur. 4. Enlarged prostate gland. 5. Cholelithiasis. Femur X-Ray 07/18/19 00:00 IMPRESSION: ORIF right femoral fracture. Refer to operative note for further information. Fluoroscopy 07/18/19 00:00 IMPRESSION: ORIF right femoral fracture. Refer to operative note for further information. Plan Discharge Plan: Requires 30 days or less of SNF
--- NOTE | 2019-07-22 13:19 | PDOC PROGRESS REPORT ---
Subjective Progress Note for:: 07/22/19 Subjective:: The patient is resting comfortably. The patient has dementia and is unable to communicate. Reason For Visit: RIGHT FEMUR FRACTURE Physical Exam Vital Signs: Temp Pulse Resp BP Pulse Ox 97.5 F 83 20 97/62 L 95 07/22/19 04:00 07/22/19 04:00 07/22/19 04:00 07/22/19 04:00 07/22/19 04:00 Intake & Output 07/21/19 07/22/19 07/23/19 06:59 06:59 06:59 Intake Total 597 1760 Output Total 550 Balance 47 1760 Weight 84.8 kg 86.7 kg General appearance: PRESENT: no acute distress Head exam: PRESENT: atraumatic, normocephalic Mouth exam: PRESENT: moist, tongue midline Neck exam: PRESENT: full ROM Respiratory exam: PRESENT: unlabored Cardiovascular exam: PRESENT: irregular rhythm GI/Abdominal exam: PRESENT: normal bowel sounds, soft. ABSENT: distended, gua rding, mass, organolmegaly, rebound, tenderness Musculoskeletal exam: PRESENT: other - The surgical dressings are intact. There is moderate serosanguineous drainage from the inferior wound used for locking screw placement. The more proximal and distal surgical wounds are clear without drainage. There is no erythema. The patient moves the extremity actively. Results Laboratory Results: 07/22/19 04:48 07/22/19 04:48 07/22/19 07/22/19 04:48 04:48 WBC 3.9 L RBC 2.16 L Hgb 7.9 L Hct 22.4 L MCV 104 H MCH 36.3 H MCHC 35.0 RDW 18.0 H Plt Count 85 L Seg Neutrophils % 60.5 Sodium 137.8 Potassium 4.7 Chloride 106 Carbon Dioxide 29 Anion Gap 3 L BUN 27 H Creatinine 0.60 Est GFR ( Amer) > 60 Glucose 121 H Calcium 7.7 L Total Bilirubin 2.0 H AST 59 Alkaline Phosphatase 219 H Total Protein 5.4 L Albumin 2.3 L Impressions: Elbow X-Ray 07/15/19 03:49 IMPRESSION: No acute abnormality. Hip/Pelvis X-Ray 07/15/19 03:49 IMPRESSION: Displaced and comminuted intertrochanteric fracture of the right femur copyright 2011 [employer]- All Rights Reserved Chest X-Ray 07/15/19 05:40 IMPRESSION: No acute disease. Abdomen/Pelvis CT 07/18/19 00:00 IMPRESSION: 1. Splenomegaly. 2. Cody catheter within the urinary bladder ; the nodular hyperdensity at the tip of the catheter is favored to represent thrombus. 3. Acute, comminuted and displaced fracture of the proximal right femur. 4. Enlarged prostate gland. 5. Cholelithiasis. Femur X-Ray 07/18/19 00:00 IMPRESSION: ORIF right femoral fracture. Refer to operative note for further information. Fluoroscopy 07/18/19 00:00 IMPRESSION: ORIF right femoral fracture. Refer to operative note for further information. Assessment & Plan - Diagnosis (1) Displaced subtrochanteric fracture of right femur, initial encounter for closed fracture Is this a current diagnosis for this admission?: Yes - Time Time Spent with patient: 15-24 minutes Anticipated discharge: SNF - Plan Summary Plan Summary: The patient is stable from an orthopedic standpoint. The persistence of drainage of the wound for femoral neck screw placement is due to the fascial opening in this area in combination with his relatively anticoagulated status due to persistent thrombocytopenia. I would recommend daily dressing changes until drainage ceases. The patient should follow-up in my office 2 weeks following discharge.
[2019-07-22] MEDS: TRAZODONE HCL 50 MG TABLET PO SCH (23:06)
[2019-07-22] MEDS: DIVALPROEX SODIUM 250 MG TAB.SR.24H PO SCH (23:11)
[2019-07-23] MEDS: INSULIN LISPRO 100 UNIT/ML 3 ML VIAL SUBCUT SCH ×2 (08:17→12:29)
[2019-07-23] MEDS: CEPHALEXIN 500 MG CAPSULE PO SCH (09:33)
[2019-07-23] MEDS: PANTOPRAZOLE SODIUM 40 MG VIAL IV SCH (09:33)
[2019-07-23] MEDS: MULTIVITAMIN TABLET PO SCH (09:34)
[2019-07-23] MEDS: LISINOPRIL 10 MG TABLET PO SCH (09:34)
[2019-07-23] MEDS: METOPROLOL SUCCINATE 25 MG TAB.SR.24H PO SCH (09:34)
[2019-07-23] MEDS: QUETIAPINE FUMARATE 25 MG TABLET PO SCH ×2 (09:34→22:41)
--- NOTE | 2019-07-23 11:21 | PDOC PROGRESS REPORT ---
Subjective Progress Note for:: 07/23/19 Subjective:: The patient is a 79-year-old male with a past medical history of advanced dementia, resident of the [facility], hypertension, and depression whose history is otherwise limited due to baseline mental status and insufficient medical records from his residential facility. He was admitted 07/15/2019 for right femur fracture and urinary tract infection. The patient is a 79-year-old male with a past medical history of advanced dementia, resident of the [facility], hypertension, and depression whose history is otherwise limited due to baseline mental status and insufficient medical records from his residential facility. He was admitted 07/15/2019 for right femur fracture and urinary tract infection. 07/19/2019. No acute events overnight, patient appears comfortable, in no a pparent distress, unfortunately due to profound dementia patient does not communicate much. 07/20/2019. No acute events overnight. Patient comfortably resting in bed in no apparent distress, unfortunately due to profound dementia patient does not communicate much. He usually says yes to any question you ask him. Ortho also has signed off, urine output is adequate, clear urine. Will DC cath, possible discharge tomorrow if H&H is stable not dropping. 07/21/2019. No acute events overnight. Patient has been having adequate urine output, no hematuria reported however his hemoglobin is dropping. Unfortunately due to profound dementia patient does not communicate much, states he is pretty much to any question asked him, moves all extremities, grimaces on the palpation of the left hip. 07/23/2019. Was discharged on 07/22/2019 to transported to [facility], but did not qualify, I was told pt will b here untill Thursday. No acute events overnight. Patient has been having adequate urine output, no hematuria reported however his hemoglobin stable. Unfortunately due to profound dementia patient does not communicate much, states he is pretty much to any question asked him, moves all extremities, grimaces on the palpation of the left hip. Reason For Visit: RIGHT FEMUR FRACTURE Physical Exam Vital Signs: Temp Pulse Resp BP Pulse Ox 98.2 F 64 16 132/63 H 100 07/23/19 07:24 07/23/19 09:27 07/22/19 23:43 07/23/19 09:27 07/23/19 09:27 Intake & Output 07/22/19 07/23/19 07/24/19 06:59 06:59 05:59 Intake Total 1760 1040 Balance 1760 1040 Weight 86.7 kg 85.2 kg General appearance: PRESENT: no acute distress, well-developed, well-nourished Respiratory exam: PRESENT: clear to auscultation katelin. ABSENT: rales, rhonchi, wheezes Cardiovascular exam: PRESENT: RRR. ABSENT: diastolic murmur, rubs, systolic murmur GI/Abdominal exam: PRESENT: normal bowel sounds, soft. ABSENT: distended, guarding, mass, organolmegaly, rebound, tenderness Gentrourinary exam: PRESENT: ecchymosis - scrotal. Musculoskeletal exam: PRESENT: other Neurological exam: PRESENT: alert, awake Results Laboratory Results: 07/22/19 04:48 07/22/19 04:48 Impressions: Elbow X-Ray 07/15/19 03:49 IMPRESSION: No acute abnormality. Hip/Pelvis X-Ray 07/15/19 03:49 IMPRESSION: Displaced and comminuted intertrochanteric fracture of the right femur copyright 2011 [employer]- All Rights Reserved Chest X-Ray 07/15/19 05:40 IMPRESSION: No acute disease. Abdomen/Pelvis CT 07/18/19 00:00 IMPRESSION: 1. Splenomegaly. 2. Cody catheter within the urinary bladder ; the nodular hyperdensity at the tip of the catheter is favored to represent thrombus. 3. Acute, comminuted and displaced fracture of the proximal right femur. 4. Enlarged prostate gland. 5. Cholelithiasis. Femur X-Ray 07/18/19 00:00 IMPRESSION: ORIF right femoral fracture. Refer to operative note for further information. Fluoroscopy 07/18/19 00:00 IMPRESSION: ORIF right femoral fracture. Refer to operative note for further information. Assessment and Plan - Diagnosis (1) Acute blood loss anemia Is this a current diagnosis for this admission?: Yes Plan: Macrocytic anemia exacerbated due to traumatic hematuria. Multifactorial. Likely due to acute femur fracture, hematuria, and possibly due to nutritional deficiency and likely due to low p.o. intake. Status post 2 PRBC transfusion on this admission. H&H is stable. CT ABD/Pelvis positive for splenomegaly, negative for any retroperitoneal hemorrhage. TSH, B12 and folic acid levels WNL. Iron panel suggestive of iron deficiency anemia. Received 1 dose of Injectafer yesterday. Will DC on iron supplementation. Monitor H&H, transfuse if less than 7 or symptomatic. (2) Displaced subtrochanteric fracture of right femur, initial encounter for closed fracture Is this a current diagnosis for this admission?: Yes Plan: Day 5 status post gamma nail for subtrochanteric fracture. Orthopedic surgery has signed off. Outpatient follow-up recommended. Continue PT, DVT prophylaxis, supportive measures. Cardiology has provided surgical risk stratification/clearance. Plan will be to transfer to rehab for continuing outpatient PT. (3) Hematuria Qualifiers: Hematuria type: gross Qualified Code(s): R31.0 - Gross hematuria Is this a current diagnosis for this admission?: Yes Plan: Resolved. Urine clear. Due to traumatic Cody catheter placement. PT has developed bilateral scrotal ecchymosis as a result. CT abdomen pelvis demonstrates prostate enlargement and bladder wall thickening. 07/19/2019. Three-way catheter placed on continuous bladder irrigation. 07/20/2019. DC three-way catheter as patient is producing clear urine, no sign of hematuria. Continue monitoring urinary output continue monitoring for hematuria, Daily H&H. (4) A-fib Qualifiers: Atrial fibrillation type: longstanding persistent Qualified Code(s): I48.11 - Longstanding persistent atrial fibrillation Is this a current diagnosis for this admission?: Yes Plan: Chronic. Rate controlled. Not anticoagulated. Continue home dose metoprolol. (5) Dementia Is this a current diagnosis for this admission?: Yes Plan: Advanced dementia; resident at the [facility]. Oriented to self and primarily nonverbal at baseline. Continue supportive care, restart home meds. Restart home meds. (6) Hyperglycemia Is this a current diagnosis for this admission?: Yes Plan: Hgb A1c 5.5% but given his anemia his hemoglobin A1c may be inaccurate. Accu-Cheks every 6 hours with sliding scale insulin. Hypoglycemia protocol in place. (7) Hypertension Is this a current diagnosis for this admission?: Yes Plan: Normotensive. Euvolemic. Continue home dose lisinopril and metoprolol Adjust meds as needed. Outpatient PCP follow-up. (8) UTI (urinary tract infection) Qualifiers: Urinary tract infection type: acute cystitis Hematuria presence: with hematuria Qualified Code(s): N30.01 - Acute cystitis with hematuria Is this a current diagnosis for this admission?: Yes Plan: Due to E. coli pansensitive. Received 1 dose of ceftriaxone on admission. Received 1 dose of cefazolin by orthopedic surgery. Day 4/4 Keflex 500 p.o. twice daily. DC antibiotics
[2019-07-23 12:09] LABS: ABSOLUTE EOSINOPHILS # (AUTO) 0.3 10^3/uL (0.0-0.6); ABSOLUTE LYMPHOCYTES (AUTO) 0.7 10^3/uL (0.5-4.7); ABSOLUTE MONOCYTES (AUTO) 0.3 10^3/uL (0.1-1.4); ABSOLUTE NEUT (AUTO) 2.2 10^3/uL (1.7-8.2); BASOPHILS % (AUTO) 0.6 % (0-2); EOSINOPHILS % (AUTO) 7.5 % (0-6); HEMATOCRIT 27.1 % (37.9-51.0); HEMOGLOBIN 9.4 g/dL (13.5-17.0); LYMPHOCYTES % (AUTO) 19.5 % (13-45); MEAN CORPUSCULAR HEMOGLOBIN 36.2 pg (27.0-33.4); MEAN CORPUSCULAR HGB CONC 34.8 g/dL (32.0-36.0); MEAN CORPUSCULAR VOLUME 104 fl (80-97); MONOCYTES % (AUTO) 9.7 % (3-13); RED CELL DISTRIBUTION WIDTH 17.8 % (11.5-14.0); SEGMENTED NEUTROPHILS % (AUTO) 62.7 % (42-78); TOTAL CELLS COUNTED % (AUTO) 100 %; WHITE BLOOD COUNT 3.5 10^3/uL (4.0-10.5)
[2019-07-23 12:10] LABS: PLATELET COUNT 84 10^3/uL (150-450)
[2019-07-23] MEDS ORDERED: DEXTROSE 50%-WATER 25 GM/50 ML DISP.SYRIN IV PRN ×2 (15:48)
[2019-07-23] MEDS ORDERED: DEXTROSE 40% GEL 15 GM TUBE PO PRN ×2 (15:48)
[2019-07-23] MEDS ORDERED: GLUCAGON,HUMAN RECOMB 1 MG INJ IM PRN (15:48)
[2019-07-23] MEDS: DIVALPROEX SODIUM 250 MG TAB.SR.24H PO SCH (22:41)
[2019-07-23] MEDS: TRAZODONE HCL 50 MG TABLET PO SCH (22:41)
[2019-07-24] MEDS: QUETIAPINE FUMARATE 25 MG TABLET PO SCH ×2 (10:33→22:52)
[2019-07-24] MEDS: MULTIVITAMIN TABLET PO SCH (10:33)
[2019-07-24] MEDS: METOPROLOL SUCCINATE 25 MG TAB.SR.24H PO SCH (10:33)
[2019-07-24] MEDS: LISINOPRIL 10 MG TABLET PO SCH (10:40)
--- NOTE | 2019-07-24 10:54 | PDOC PROGRESS REPORT ---
Subjective Progress Note for:: 07/24/19 Subjective:: The patient is a 79-year-old male with a past medical history of advanced dementia, resident of the [facility], hypertension, and depression whose history is otherwise limited due to baseline mental status and insufficient medical records from his residential facility. He was admitted 07/15/2019 for right femur fracture and urinary tract infection. The patient is a 79-year-old male with a past medical history of advanced dementia, resident of the [facility], hypertension, and depression whose history is otherwise limited due to baseline mental status and insufficient medical records from his residential facility. He was admitted 07/15/2019 for right femur fracture and urinary tract infection. 07/19/2019. No acute events overnight, patient appears comfortable, in no a pparent distress, unfortunately due to profound dementia patient does not communicate much. 07/20/2019. No acute events overnight. Patient comfortably resting in bed in no apparent distress, unfortunately due to profound dementia patient does not communicate much. He usually says yes to any question you ask him. Ortho also has signed off, urine output is adequate, clear urine. Will DC cath, possible discharge tomorrow if H&H is stable not dropping. 07/21/2019. No acute events overnight. Patient has been having adequate urine output, no hematuria reported however his hemoglobin is dropping. Unfortunately due to profound dementia patient does not communicate much, states he is pretty much to any question asked him, moves all extremities, grimaces on the palpation of the left hip. 07/23/2019. Was discharged on 07/22/2019 to transported to [facility], but did not qualify, I was told pt will b here untill Thursday. No acute events overnight. Patient has been having adequate urine output, no hematuria reported however his hemoglobin stable. Unfortunately due to profound dementia patient does not communicate much, states he is pretty much to any question asked him, moves all extremities, grimaces on the palpation of the left hip. 07/24/2019. No acute events overnight. Patient does not communicate much except when palpated on the right he winces and withdraws his right leg otherwise does not appear in acute distress, moves all extremities. Patient is pending trans angela to rehab. Reason For Visit: RIGHT FEMUR FRACTURE Physical Exam Vital Signs: Temp Pulse Resp BP Pulse Ox 98.3 F 82 16 121/58 L 96 07/24/19 08:35 07/24/19 10:41 07/24/19 08:35 07/24/19 10:41 07/24/19 00:20 Intake & Output 07/23/19 07/24/19 07/25/19 07:59 06:59 06:59 Intake Total Balance Weight General appearance: PRESENT: no acute distress, well-developed, well-nourished Head exam: PRESENT: atraumatic, normocephalic Respiratory exam: PRESENT: clear to auscultation katelin. ABSENT: rales, rhonchi, wheezes Pulses: PRESENT: normal dorsalis pedis pul Extremities exam: PRESENT: tenderness - Right hip tenderness over the surgical l ine. There is mild clear discharge, no erythema or foul discharge. Neurovascularly intact. Neurological exam: PRESENT: awake Results Laboratory Results: 07/23/19 11:47 07/22/19 04:48 07/23/19 11:47 WBC 3.5 L RBC 2.60 L Hgb 9.4 L Hct 27.1 L MCV 104 H MCH 36.2 H MCHC 34.8 RDW 17.8 H Plt Count 84 L Seg Neutrophils % 62.7 Impressions: Elbow X-Ray 07/15/19 03:49 IMPRESSION: No acute abnormality. Hip/Pelvis X-Ray 07/15/19 03:49 IMPRESSION: Displaced and comminuted intertrochanteric fracture of the right femur copyright 2011 [employer]- All Rights Reserved Chest X-Ray 07/15/19 05:40 IMPRESSION: No acute disease. Abdomen/Pelvis CT 07/18/19 00:00 IMPRESSION: 1. Splenomegaly. 2. Cody catheter within the urinary bladder ; the nodular hyperdensity at the tip of the catheter is favored to represent thrombus. 3. Acute, comminuted and displaced fracture of the proximal right femur. 4. Enlarged prostate gland. 5. Cholelithiasis. Femur X-Ray 07/18/19 00:00 IMPRESSION: ORIF right femoral fracture. Refer to operative note for further information. Fluoroscopy 07/18/19 00:00 IMPRESSION: ORIF right femoral fracture. Refer to operative note for further information. Assessment and Plan - Diagnosis (1) Acute blood loss anemia Is this a current diagnosis for this admission?: Yes Plan: Macrocytic anemia exacerbated due to traumatic hematuria. Multifactorial. Likely due to acute femur fracture, hematuria, and possibly due to nutritional deficiency and likely due to low p.o. intake. Status post 2 PRBC transfusion on this admission. H&H is stable. CT ABD/Pelvis positive for splenomegaly, negative for any retroperitoneal hemorrhage. TSH, B12 and folic acid levels WNL. Iron panel suggestive of iron deficiency anemia. Received 1 dose of Injectafer yesterday. Will DC on iron supplementation. Hemoglobin trending up. No sign of active bleeding. Monitor H&H, transfuse if less than 7 or symptomatic. (2) Displaced subtrochanteric fracture of right femur, initial encounter for closed fracture Is this a current diagnosis for this admission?: Yes Plan: Day 6 status post gamma nail for subtrochanteric fracture. Orthopedic surgery has signed off. Outpatient follow-up recommended. Continue PT, DVT prophylaxis, supportive measures. Plan will be to transfer to rehab for continuing outpatient PT. (3) Hematuria Qualifiers: Hematuria type: gross Qualified Code(s): R31.0 - Gross hematuria Is this a current diagnosis for this admission?: Yes Plan: Resolved. Urine clear. Due to traumatic Cody catheter placement. PT has developed bilateral scrotal ecchymosis as a result. CT abdomen pelvis demonstrates prostate enlargement and bladder wall thickening. 07/19/2019. Three-way catheter placed on continuous bladder irrigation. 07/20/2019. DC three-way catheter as patient is producing clear urine, no sign of hematuria. Continue monitoring urinary output continue monitoring for hematuria, Daily H&H. (4) A-fib Qualifiers: Atrial fibrillation type: longstanding persistent Qualified Code(s): I48.11 - Longstanding persistent atrial fibrillation Is this a current diagnosis for this admission?: Yes Plan: Chronic. Rate controlled. Not anticoagulated. Continue home dose metoprolol. (5) Dementia Is this a current diagnosis for this admission?: Yes Plan: Advanced dementia; resident at the [facility]. Oriented to self and primarily nonverbal at baseline. Continue supportive care, restart home meds. Restart home meds. (6) Hyperglycemia Is this a current diagnosis for this admission?: Yes Plan: Hgb A1c 5.5% but given his anemia his hemoglobin A1c may be inaccurate. Accu-Cheks every 6 hours with sliding scale insulin. Hypoglycemia protocol in place. (7) Hypertension Is this a current diagnosis for this admission?: Yes Plan: Normotensive. Euvolemic. Continue home dose lisinopril and metoprolol Adjust meds as needed. Outpatient PCP follow-up. (8) UTI (urinary tract infection) Qualifiers: Urinary tract infection type: acute cystitis Hematuria presence: with hematuria Qualified Code(s): N30.01 - Acute cystitis with hematuria Is this a current diagnosis for this admission?: Yes Plan: Due to E. coli pansensitive. Received 1 dose of ceftriaxone on admission. Received 1 dose of cefazolin by orthopedic surgery. Day 4/4 Keflex 500 p.o. twice daily. Received 5 days of antibiotics.
[2019-07-24] MEDS: MORPHINE SULFATE 10 MG/ML INJ IV PRN (13:22)
[2019-07-24] MEDS ORDERED: ACETAMINOPHEN 325 MG TABLET PO SCH (15:00)
[2019-07-24] MEDS: TRAZODONE HCL 50 MG TABLET PO SCH (22:52)
[2019-07-24] MEDS: DIVALPROEX SODIUM 250 MG TAB.SR.24H PO SCH (22:52)
[2019-07-25 06:26] LABS: ABSOLUTE EOSINOPHILS # (AUTO) 0.3 10^3/uL (0.0-0.6); ABSOLUTE LYMPHOCYTES (AUTO) 1.1 10^3/uL (0.5-4.7); ABSOLUTE MONOCYTES (AUTO) 0.7 10^3/uL (0.1-1.4); ABSOLUTE NEUT (AUTO) 2.7 10^3/uL (1.7-8.2); BASOPHILS % (AUTO) 0.7 % (0-2); EOSINOPHILS % (AUTO) 6.8 % (0-6); HEMATOCRIT 29.7 % (37.9-51.0); HEMOGLOBIN 10.3 g/dL (13.5-17.0); LYMPHOCYTES % (AUTO) 23.3 % (13-45); MEAN CORPUSCULAR HEMOGLOBIN 35.6 pg (27.0-33.4); MEAN CORPUSCULAR HGB CONC 34.5 g/dL (32.0-36.0); MEAN CORPUSCULAR VOLUME 103 fl (80-97); MONOCYTES % (AUTO) 13.4 % (3-13); PLATELET COUNT 102 10^3/uL (150-450); RED BLOOD COUNT 2.89 10^6/uL (4.35-5.55); RED CELL DISTRIBUTION WIDTH 18.1 % (11.5-14.0); SEGMENTED NEUTROPHILS % (AUTO) 55.8 % (42-78); TOTAL CELLS COUNTED % (AUTO) 100 %; WHITE BLOOD COUNT 4.9 10^3/uL (4.0-10.5)
[2019-07-25 06:57] LABS: BLOOD UREA NITROGEN 21 mg/dL (7-20); CALCIUM 7.9 mg/dL (8.4-10.2); CHLORIDE 103 mmol/L (98-107); GLUCOSE 113 mg/dL (75-110)
[2019-07-25 06:58] LABS: ANION GAP 4 (5-19); CARBON DIOXIDE 28 mmol/L (22-30)
[2019-07-25 09:00] VITALS: BP 133/77
[2019-07-25] MEDS: QUETIAPINE FUMARATE 25 MG TABLET PO SCH (10:01)
[2019-07-25] MEDS: METOPROLOL SUCCINATE 25 MG TAB.SR.24H PO SCH (10:05)
[2019-07-25] MEDS: MULTIVITAMIN TABLET PO SCH (10:06)
[2019-07-25] MEDS: LISINOPRIL 10 MG TABLET PO SCH (10:06)
[2019-07-25] MEDS ORDERED: ACETAMINOPHEN 325 MG TABLET PO PRN (10:30)
== END 2019-07-25 17:41 | DRG 956 ==
LOC: ER 03:36 → EH 07:46 → 4S 13:00
PROVIDERS: ADMIT Family Medicine; ATTEND Family Medicine
PROC: 30233N1 Transfusion of Nonautologous Red Blood Cells into Peripheral Vein, Percutaneous Approach (ICD-10-PCS; 2019-07-17)
PROC: 0QS636Z Reposition Right Upper Femur with Intramedullary Internal Fixation Device, Percutaneous Approach (ICD-10-PCS; principal; 2019-07-18 15:15)
DX: S72.21XA Displaced subtrochanteric fracture of right femur, initial encounter for closed fracture (principal); S37.29XA Other injury of bladder, initial encounter; D62 Acute posthemorrhagic anemia; N39.0 Urinary tract infection, site not specified; I48.11 Longstanding persistent atrial fibrillation; R31.0 Gross hematuria; W18.30XA Fall on same level, unspecified, initial encounter; Y92.122 Bedroom in nursing home as the place of occurrence of the external cause; I10 Essential (primary) hypertension; S51.012A Laceration without foreign body of left elbow, initial encounter; F03.90 Unspecified dementia, unspecified severity, without behavioral disturbance, psychotic disturbance, mood disturbance, and anxiety; R73.9 Hyperglycemia, unspecified; F32.9 Major depressive disorder, single episode, unspecified; B96.20 Unspecified Escherichia coli [E. coli] as the cause of diseases classified elsewhere; R23.3 Spontaneous ecchymoses; D50.9 Iron deficiency anemia, unspecified; Z79.899 Other long term (current) drug therapy
CPT/HCPCS: 01230; 36415; 36430; 51702; 71045; 74176; 80048; 80053; 81001; 82607; 82728; 82746; 82962; 83036; 83540; 83550; 83735; 84100; 84439; 84443; 84481; 85025; 85027; 85045; 85610; 85730; 86850; 86900; 86901; 86920; 87086; 87088; 87186; 93005; 93010; 93306; 96374; 99285; C1713; C1758; C1769; C9113; J0330; J0690; J0696; J1100; J1815; J2250; J2270; J2405; J2704; J3010; J3490; J7030; J7040; J7060; P9016